=== PATIENT | male | born 1995 | race Caucasian/White ===

== ENCOUNTER 2021-08-14 16:42 | Outpatient (REF) | payer OTHER, SELFPAY ==
[2021-08-14 20:56] LABS: Influenza A PCR NEGATIVE (Negative); Influenza B PCR NEGATIVE (Negative); Resp Syncy Virus RNA Qual PCR POSITIVE (Negative); SARS COV2 PCR INHOUSE NEGATIVE (Negative)
== END 2021-08-14 16:43 | disposition home or self-care (01) ==
LOC: HO.LAB 16:42
PROVIDERS: Visit Provider Family Medicine
DX: Z20.822 Contact with and (suspected) exposure to COVID-19 (principal)
CPT/HCPCS: 0241U

== ENCOUNTER 2024-01-14 11:02 | Outpatient (AMB) | payer OTHER, SELFPAY ==
[2024-01-14 11:19] VITALS: BP 118/76; PULSE 83; O2SAT 96; BMI 36.7
--- NOTE | 2024-01-14 11:19 | A.OFFPC_ITS ---
Vital Signs 01/14/24 11:19 Height 6 ft 1 in Weight 278 lb BMI 36.7 BP 118/76 Blood Pressure Location Lt brachial Position Sitting Pulse 83 Pulse Source Pulse Oximeter Pulse Oximetry (%) 96 Oxygen Delivery Method Room Air Intake Visit Reasons: New Pt Est Care Intake Note: Patient is here as a new patient,,is concerned about cough, and scratch on his head that would not heal haircut was Thursday, and bled 3 times. Allergies No Known Allergies Allergy (Verified 01/14/24 11:23) Medication List - Last Reconciled 01/14/24 by Galileo Vásquez MD dextroamphetamine-amphetamine 20 mg 1 tab PO DAILY methylphenidate HCl ER 72 mg PO QAM trazodone 100 mg PO BEDTIME PRN Tobacco use date assessed: 01/14/24 Dental Screening Dental Screen Date: 01/14/24 Did you have a dental visit in the last 12 months?: Yes Did you have a dental problem in the last 6 months where you did not have access to dental care?: No Was dental information given to patient?: Patient has dentist HPI New Pt Est Care HPI Details New Patient? ?? Prior PCP:? [facility]. Last office visit/CPE:? > 1yr Acute issue(s):? Scalp injury Weight ?? PMHx:? Difficulty concentrating, Insomnia SurgHx:? none FHx:? Mom: Healthy. Dad: Idiopathic pulm fibrosis. SocHx:?No cigs, EtOH 2 beers on a weekend. Vapes Cannibis, No other drugs PFSH Medical History (Updated 01/14/24 @ 12:58 by Galileo Vásquez MD) Poison sue Heart murmur Trouble in sleeping ADHD Surgical History (Updated 01/14/24 @ 11:30 by Meredith Simmons CMA) No pertinent past surgical history Family History (Updated 01/14/24 @ 11:33 by Meredith Simmons CMA) Father Idiopathic pulmonary fibrosis Social History (Updated 01/14/24 @ 11:36 by Meredith Simmons CMA) Household Members: Family Both parents involved: No Caregiver staying overnight: No Housing: House Are you a primary care team assistant to a significant other at home: No Do you presently have visiting nurse or other home services: No 75 years or older and lives alone: No Alcohol intake: current Alcohol intake frequency: holidays/special occasions only Alcohol type: beer Patient Tobacco Use Status: Never used Tobacco e-Cigarette/Vaping Use: Never Used Special llyod needs: No service: No Current occupational status: unemployed Cognitive needs: No Hearing needs: No Vision needs: No Review of Systems Const Denies chills, Denies fatigue, Denies fever(s), Denies headache(s) and Denies weakness ENT Denies dizziness and Denies headache(s) Card Denies chest pain, Denies lightheadedness, Denies dyspnea and Denies other (Palpitations) Resp Denies cough, Denies dyspnea, Denies wheezing and Denies other ( shortness of breath) Musc Denies numbness and Denies tingling Neuro Denies dizziness, Denies headache(s), Denies numbness, Denies tingling, Denies paresthesias and Denies weakness Psych Denies anxiety and Denies depression Endo Denies fatigue Aller/Immun Denies wheezing Physical exam (Primary Care) Vital Signs: Last Vital Signs Pulse 83 01/14/24 11:19 BP 118/76 01/14/24 11:19 Pulse Ox 96 01/14/24 11:19 Oxygen Delivery Method Room Air 01/14/24 11:19 BMI result Body Mass Index 36.7 Tobacco/Smoking Status: Tobacco use Status Tobacco use date assessed 01/14/24 01/14/24 11:39 Patient Tobacco Use Status Never used Tobacco 01/14/24 11:39 e-Cigarette/Vaping Use Never Used 01/14/24 11:39 Const General: no acute distress and well developed Nutritional Appearance: well nourished Orientation/consciousness: patient oriented x3 HENMT Head: Yes normocephalic and Yes atraumatic Eyes General: appearance normal, both eyes and all related structures Pupils: Equal, round and reactive pupils present EOM: EOMs intact bilaterally Resp Effort & Inspection: normal respiratory effort Auscultation: clear to auscultation bilaterally Cardio Rate: regular rate Rhythm: regular rhythm Heart sounds: S1 normal heart sound present, S2 normal heart sound present, no gallops, no murmurs and no rubs Skin Other: Bright?red?0.5?cm?polypoid?lesion?on?scalp Neuro General: patient oriented x3 and gait normal Cranial nerves: Yes Equal, round and reactive pupils present Psych Affect: normal affect Assessment and Plan Assessment & Plan (1) Insomnia: Code(s): G47.00 - Insomnia, unspecified Plan: Can?continue?trazodone?however?will?rule?out?sleep?apnea?1st (2) Difficulty concentrating: Code(s): R41.840 - Attention and concentration deficit Plan: Difficulty?concentrating?and?patient?states?that?he?has?a?diagnosis?of?ADHD.??I? do?not?have?prior?practitioners?notes?and?will?await?these. If?I?can?establish?diagnosis?of?ADHD,?we?can?sign ?a?contract?and?resume?treatment.??Patient?agrees (3) Laboratory exam ordered as part of routine general medical examination: Code(s): Z00.00 - Encounter for general adult medical examination without abnormal findings Plan: Check?lab (4) Neoplasm of uncertain behavior of skin: Code(s): D48.5 - Neoplasm of uncertain behavior of skin Plan: Bright?red?0.5?cm?polypoid?lesion?on?scalp Likely?hamartoma - referred?to?dermatology (5) Obesity: Code(s): E66.9 - Obesity, unspecified Plan: We?discussed?diet?and?exercise Will?follow?weight Orders: Orders Comprehensive [place]. Panel Fast Today Z00.00 - Encounter for general adult medical examination without abnormal findings Prostate Specific Antigen Scr Today Z12.5 - Encounter for screening for malignant neoplasm of prostate Complete Blood Count Auto Diff Today G47.30 - Sleep apnea, unspecified, Z00.00 - Encounter for general adult medical examination without abnormal findings Lipid Panel Today Z00.00 - Encounter for general adult medical examination without abnormal findings Microalbumin, Random (w Creat) Today I10 - Essential (primary) hypertension TSH reflex Free T4 Today Z00.00 - Encounter for general adult medical examination without abnormal findings UA and rflx microscopic Today Z00.00 - Encounter for general adult medical examination without abnormal findings Referrals Dermatology Referral D48.5 - Neoplasm of uncertain behavior of skin Sleep Medicine Referral G47.30 - Sleep apnea, unspecified Coding Level of Care Code New Pt Level 3 (22444) Diagnoses Insomnia G47.00 Difficulty concentrating R41.840 Laboratory exam ordered as part of routine general medical examination Z00.00 Neoplasm of uncertain behavior of skin D48.5 Obesity E66.9
== END 2024-01-14 16:29 | disposition home or self-care (01) ==
PROVIDERS: Visit Provider Family Medicine
DX: G47.00 Insomnia, unspecified (principal); R41.840 Attention and concentration deficit; E66.9 Obesity, unspecified; Z68.36 Body mass index [BMI] 36.0-36.9, adult; D48.5 Neoplasm of uncertain behavior of skin
CPT/HCPCS: 99213

== ENCOUNTER 2024-01-21 13:52 | Outpatient (AMB) | payer OTHER, SELFPAY ==
--- NOTE | 2024-01-21 14:10 | A.OFFVIS_ITS ---
Vital Signs 01/21/24 14:12 Height 6 ft 1 in Weight 285 lb BMI 37.6 BP 118/72 Blood Pressure Location Rt brachial Position Sitting Respiration 16 Pulse 69 Pulse Source Pulse Oximeter Pulse Oximetry (%) 98 Oxygen Delivery Method Room Air Intake Visit Reasons: 30LVM+Let INp-ROGER Intake Note: Pt presents for new pt evaluation for sleep disturbance and snoring. Compensation Analyst Required: No Allergies No Known Allergies Allergy (Verified 01/21/24 14:10) Medication List - Last Reconciled 01/21/24 by Honey Whelan MD dextroamphetamine-amphetamine 20 mg (Adderall) 20 mg PO DAILY methylphenidate HCl ER (Concerta) 54 mg PO DAILY trazodone 100 mg (2 x 50 mg) PO BEDTIME PRN 30 days HPI Comments Details: 28y/o male comes for sleep evaluation . Main complaints-loud snoring Sleep questionnaire- Difficulty falling asleep-yes- is on trazadone Difficulty staying asleep-no Number of arousals-1 Snoring-yes Witnessed apneas-yes Gasping arousals-no Nocturia-no GERD-no Vivid dreams-no Acting out dreams -no Abnormal behavior in sleep-no ABnormal movements in sleep-no Morning headaches-no Excessive daytime sleepiness-no Daytime naps- yes restless legs- yes [facility] Medical History (Updated 01/21/24 @ 14:34 by Honey Whelan MD) Restless legs syndrome (RLS) Hypersomnia Loud snoring Poison sue Heart murmur Trouble in sleeping ADHD Surgical History No pertinent past surgical history Family History Father Idiopathic pulmonary fibrosis Social History Household Members: Family Both parents involved: No Caregiver staying overnight: No Housing: House Are you a primary ambulatory care to a significant other at home: No Do you presently have visiting nurse or other home services: No 75 years or older and lives alone: No Alcohol intake: current Alcohol intake frequency: holidays/special occasions only Alcohol type: beer Patient Tobacco Use Status: Never used Tobacco e-Cigarette/Vaping Use: Never Used Special lloyd needs: No service: No Current occupational status: unemployed Cognitive needs: No Hearing needs: No Vision needs: No Physical Exam Vital Signs: Last Vital Signs Pulse 69 01/21/24 14:12 Resp 16 01/21/24 14:12 BP 118/72 01/21/24 14:12 Pulse Ox 98 01/21/24 14:12 Oxygen Delivery Method Room Air 01/21/24 14:12 BMI result Body Mass Index 37.6 Const General: well developed; No acute distress Nutritional Appearance: well nourished Orientation/consciousness: patient oriented x3 HEENT Head: Yes normocephalic and Yes atraumatic Eyes General: appearance normal, both eyes and all related structures Pupils: Equal, round and reactive pupils present EOM: EOMs intact bilaterally Neuro General: patient oriented x3, gait normal, tone normal, moves all extremities and no focal motor deficits Cranial nerves: Yes Equal, round and reactive pupils present, Yes Bilaterally intact EOM present, Yes Nystagmus not present and Yes Normal facial strength present Cognition (Neuro): normal cognition Gait exam (Neuro): Normal gait present Motor exam (neuro): 5/5 motor strength present throughout and Normal motor muscle tone present throughout Deep tendon reflexes (DTR's): Right triceps reflex intensity grade: 1+, Left triceps reflex intensity grade: 1+, Rt Biceps (C5, C6): 1+, Left biceps reflex intensity grade: 1+, Right brachioradialis reflex intensity grade: 1+, Left brachioradialis reflex intensity grade: 1+, Right patellar reflex intensity grade: 1+ and Left patellar reflex intensity grade: 1+ Psych Affect: normal affect Assessment & Plan Assessment & Plan (1) Loud snoring: Code(s): R06.83 - Snoring Category: Medical (2) Hypersomnia: Code(s): G47.10 - Hypersomnia, unspecified Category: Medical (3) Restless legs syndrome (RLS): Code(s): G25.81 - Restless legs syndrome Category: Medical Plan Home sleep study to r/o sleep apnea. will check his Vit B 12 Ferritin Vit D CMP CBC Orders: Orders Vitamin D 25-OH (D2 and D3) Today G25.81 - Restless legs syndrome Ferritin Today G25.81 - Restless legs syndrome RT home sleep study Today G47.10 - Hypersomnia, unspecified, R06.83 - Snoring Vitamin B12 and Folate Today G25.81 - Restless legs syndrome Medications: New magnesium oxide 400 mg PO BEDTIME 30 tabs 6RF Coding Level of Care Code New Pt Level 4 (07866) Diagnoses Loud snoring R06.83 Hypersomnia G47.10 Restless legs syndrome (RLS) G25.81
[2024-01-21 14:12] VITALS: BP 118/72; PULSE 69; RESP 16; O2SAT 98; BMI 37.6
== END 2024-01-21 14:44 | disposition home or self-care (01) ==
PROVIDERS: Referring Provider Family Medicine; Visit Provider Psychiatry & Neurology Neurology
DX: R06.83 Snoring (principal); G47.10 Hypersomnia, unspecified; G25.81 Restless legs syndrome
CPT/HCPCS: 99204

== ENCOUNTER → 2024-01-21 13:52 | Outpatient (BNVA) | payer OTHER, SELFPAY | PROVIDERS: Visit Provider Psychiatry & Neurology Neurology | DX: R06.83 Snoring (principal); G47.10 Hypersomnia, unspecified; G25.81 Restless legs syndrome | CPT/HCPCS: 99202 ==

== ENCOUNTER 2024-01-27 12:15 | Emergency (ER) | payer OTHER, SELFPAY ==
[2024-01-27 12:43] VITALS: BP 139/64; PULSE 98; RESP 16; TEMP 36.8; O2SAT 97; BMI 36.7
--- NOTE | 2024-01-27 12:43 | ED_ITS ---
HPI - General Adult General Chief complaint: Wound/Laceration Stated complaint: Sent by Dr Bobby vergara on head Time Seen by Provider: 01/27/24 15:01 Source: patient, RN notes reviewed and old records reviewed Mode of arrival: ambulatory History of Present Illness ED Provider: Muna Sainz PA-C [facility] narrative: 28-year-old male with a past medical history of sleep apnea, presenting to the ED complaining of friable mass to scalp x few weeks. States noted area a few weeks ago & bleeds when irritated, admits it has been growing. Saw PCP referred him to Dermatology however can not get an appointment. denies fever, chills, trauma. Related Data Home Medications ?Medication ?Instructions ?Recorded ?Confirmed dextroamphetamine-amphetamine 20 20 mg PO DAILY 01/21/24 01/21/24 mg tablet (Adderall) methylphenidate HCl 54 mg 54 mg PO DAILY 01/21/24 01/21/24 tablet,extended release 24 hr (Concerta) Previous Rx's ?Medication ?Instructions ?Recorded trazodone 50 mg tablet 100 mg (2 x 50 mg) PO BEDTIME PRN 01/14/24 insomnia 30 days #30 tabs magnesium oxide 400 mg (241.3 mg 400 mg PO BEDTIME #30 tabs 01/21/24 magnesium) tablet Allergies Allergy/AdvReac Type Severity Reaction Status Date / Time No Known Allergies Allergy Verified 01/27/24 12:43 Review of Systems Review of Systems: Constitutional: No Fever, No Chills ENT/Mouth: No Ear Pain, No Nasal Congestion, No sore throat, No Rhinorrhea, No Swallowing Difficulty Cardiovascular: No Chest Pain, No SOB Respiratory: No Cough, No Sputum, No Wheezing Musculoskeletal: No joint pain, No Myalgias, No Joint Swelling Skin: + Skin Lesions, No rash Neuro: No Weakness, No Numbness, No Paresthesias Yes all other systems are reviewed and are negative Constitutional: Constitutional: Reports as per [facility] Past Medical History Attestation statement: The following information was validated with the patient. Source: old records reviewed Medical History Restless legs syndrome (RLS) Hypersomnia Loud snoring Poison sue Heart murmur Trouble in sleeping ADHD Surgical History No pertinent past surgical history Family History Family History Father Idiopathic pulmonary fibrosis Social History Social History Household Members: Family Housing: House Are you a primary residential care facility manager to a significant other at home: No Do you presently have visiting nurse or other home services: No Alcohol intake: current Alcohol intake frequency: holidays/special occasions only Alcohol type: beer Patient Tobacco Use Status: Never used Tobacco e-Cigarette/Vaping Use: Never Used Special lloyd needs: No Advance Directives: No Advance Directives Information Provided: No service: No Current occupational status: unemployed Cognitive needs: No Hearing needs: No Vision needs: No Physical Exam ED Vital Signs: Vital Signs - 24 hr 01/27/24 12:43 01/27/24 14:00 01/27/24 15:57 Temperature 98.2 F 98.4 F 98.4 F Pulse Rate 98 71 71 Respiratory Rate 16 16 Blood Pressure 139/64 133/72 133/72 Pulse Oximetry 97 96 96 Oxygen Delivery Method Room Air Room Air Room Air BMI result Body Mass Index 36.7 Const General: cooperative, healthy appearing and no acute distress Orientation/consciousness: patient oriented x3 Limitations: no limitations HENMT Other: Hemangioma noted to right scalp. No active bleeding. No fluctuance/induration or pointing. Surrounding cellulitis Head: Yes atraumatic Ears: hearing grossly normal bilaterally General nose exam: Normal external nose present Face and sinus: Yes normal facial exam Eyes General: appearance normal, both eyes and all related structures EOM: EOMs intact bilaterally Neck Neck: Yes normal visual inspection and Yes no meningeal signs Resp Effort & Inspection: normal respiratory effort and no respiratory distress Cardio Rate: regular rate Skin Rashes: no rashes Neuro General: patient oriented x3, tone normal and no meningeal signs Cranial nerves: Yes CN's II-XII intact bilaterally Gait exam (Neuro): Normal gait present Extrem General: Yes normal to inspection Course Course Course Narrative: This is a rapid medical exam performed by Lamine Pruitt NP: Additional HPI, ROS, PE not included below will be deferred to primary provider. Patient is a 28-year-old male referred to the ED by his PCP for a mass on his scalp for the past 2 weeks. States he was initially referred to dermatology but they don't take his insurance. Area has grown in size since. Reports significant bleeding if the area is disturbed. Approx 5mm erythematous nodule to scalp, no active bleeding. Medical Decision Making Medical Decision Making [facility] Narrative: 28-year-old male with a past medical history of sleep apnea, presenting to the ED complaining of friable mass to scalp x few weeks. On exam vital signs stable, NAD, nontoxic appearing, hemangioma noted to scalp without active bleeding or infection. Discussed with patient needs to follow-up with Dermatology for biopsy/excision if desired. Plan: Dermatology follow-up Please refer to course for remaining clinical decision making, interpretation of labs/imaging results, and discussions with consultants and/or family members. Results discussed with patient including worrisome signs and symptoms and strict return precautions, and when to return to the emergency department. They verbalized understanding and feel safe for discharge at this time. Differential Diagnosis Differential Diagnoses: The differential diagnosis associated with the presentation includes As above External Record Review External record reviewed: Inpatient record, Office record, Outpatient record, Prior outpatient labs, Prior outpatient radiology, Primary care record and Outside ED record Tests considered The following testing was considered but not selected: As above Prescription Management I considered prescription management with: Antibiotic Discharge Plan Discharge Clinical Impression: Lesion of skin of scalp Patient Disposition: Home, Self-Care Instructions: Skin Biopsy (DC) Additional Instructions: You need to follow-up with dermatology Call to make an appointment if area grows rapidly, begins bleeding that is not controllable or you have fever return to the ED Prescriptions: No Action trazodone 50 mg tablet 100 mg PO BEDTIME PRN (Reason: insomnia) 30 Days Qty: 30 2RF methylphenidate HCl [Concerta] 54 mg tablet extended release 24hr 54 mg PO DAILY Rx Instructions: 1.5 tabs every am dextroamphetamine-amphetamine [Adderall] 20 mg tablet 20 mg PO DAILY magnesium oxide 400 mg (241.3 mg magnesium) tablet 400 mg PO BEDTIME Qty: 30 6RF Referrals: [facility] [Outside] [facility] [Outside] [facility] [Outside] [facility] [Outside] Interventions: ED Discharge Assessment Last Done: 01/27/24 15:57 Discharge Date/Time: 01/27/24 15:58 Print Language: Czech
[2024-01-27 14:00] VITALS: BP 133/72; PULSE 71; TEMP 36.9; O2SAT 96
[2024-01-27 15:57] VITALS: BP 133/72; PULSE 71; RESP 16; TEMP 36.9; O2SAT 96
== END 2024-01-27 15:58 | disposition home or self-care (01) ==
PROVIDERS: Emergency Provider Emergency Medicine Emergency Medical Services; PCP Family Medicine
DX: L02.811 Cutaneous abscess of head [any part, except face] (principal); R22.0 Localized swelling, mass and lump, head
CPT/HCPCS: 99282; 99283

== ENCOUNTER 2024-02-10 10:20 | Outpatient (AMB) | payer OTHER, SELFPAY ==
--- NOTE | 2024-02-10 10:35 | AM.OFFWIN_ITS ---
Intake Vital Signs 02/10/24 10:36 Height 6 ft 0.83 in Weight 286 lb 4 oz BMI 37.9 BP 136/68 Blood Pressure Location Rt brachial Position Sitting Respiration 16 Pulse 74 Pulse Source Pulse Oximeter Temp 98.4 F Temp Source Oral Pulse Oximetry (%) 95 Oxygen Delivery Method Room Air Intake Visit Reasons: bump in head Intake Note: Bump on head that [facility] with Thalia last month. Seeing Dermatology in June so he declined appointment. Bump is bleeding more frequently few times a week. Patient Tobacco Use Status: Never used Tobacco Allergies No Known Allergies Allergy (Verified 02/10/24 10:35) Medication List - Last Reconciled 02/10/24 by CRUZ Diez-Armando dextroamphetamine-amphetamine 20 mg (Adderall) 20 mg PO DAILY magnesium oxide 400 mg PO BEDTIME methylphenidate HCl ER (Concerta) 54 mg PO DAILY trazodone 100 mg (2 x 50 mg) PO BEDTIME PRN 30 days HPI bump in head HPI Details Patient is a 28-year-old male who presents today with complaints of a lump on his scalp x 1-2 months. He states that he was seen a few weeks ago and was told that it looked consistent with a hamartoma. He states it just feels like it is rapidly growing and easily bleeding. He is frustrated because he cannot get in to see derm for a 6-12 months. He states that this lesion is making him uncomfortable and he does not there anymore. He states at this point he would private paid to get this taken off of him. [facility] Medical History Restless legs syndrome (RLS) Hypersomnia Loud snoring Poison sue Heart murmur Trouble in sleeping ADHD Surgical History No pertinent past surgical history Family History Father Idiopathic pulmonary fibrosis Social History Household Members: Family Both parents involved: No Caregiver staying overnight: No Housing: House Are you a primary lawn caretaker to a significant other at home: No Do you presently have visiting nurse or other home services: No 75 years or older and lives alone: No Alcohol intake: current Alcohol intake frequency: holidays/special occasions only Alcohol type: beer Patient Tobacco Use Status: Never used Tobacco e-Cigarette/Vaping Use: Never Used Special lloyd needs: No service: No Current occupational status: unemployed Cognitive needs: No Hearing needs: No Vision needs: No Physical Exam Vital Signs: Last Vital Signs Temp 98.4 F 02/10/24 10:36 Pulse 74 02/10/24 10:36 Resp 16 02/10/24 10:36 BP 136/68 02/10/24 10:36 Pulse Ox 95 02/10/24 10:36 Oxygen Delivery Method Room Air 02/10/24 10:36 BMI result Body Mass Index 37.9 Const Orientation/consciousness: patient oriented x3 HEENT Ears: hearing grossly normal bilaterally Resp Auscultation: clear to auscultation bilaterally Cardio Rate: regular rate Rhythm: regular rhythm Heart sounds: S1 normal heart sound present and S2 normal heart sound present Skin Other: Bright?red?1?cm?polypoid?lesion?on?scalp Neuro General: patient oriented x3 Assessment & Plan Assessment & Plan (1) Lesion of skin of scalp: Code(s): L98.9 - Disorder of the skin and subcutaneous tissue, unspecified Plan: We will refer to General surgery for consultation. Advised patient that he may not be able to private pay if he has mass Health at the dermatology office but he can try. He will contact [facility] and let us know if he gets an appointment and canceled consult to General surgery. Advised to follow up if anything worsens or changes. Patient understands and agrees with the plan. Orders: Referrals General Surgery Referral L98.9 - Disorder of the skin and subcutaneous tissue, unspecified Coding Level of Care Code Est Pt Level 3 (11402) Diagnoses Lesion of skin of scalp L98.9
[2024-02-10 10:36] VITALS: BP 136/68; PULSE 74; RESP 16; TEMP 36.9; O2SAT 95; BMI 37.9
== END 2024-02-10 10:41 | disposition home or self-care (01) ==
LOC: HO.HMGWIW 10:20
PROVIDERS: PCP Family Medicine
DX: L98.9 Disorder of the skin and subcutaneous tissue, unspecified (principal)
CPT/HCPCS: 99213

== ENCOUNTER 2024-02-23 13:40 | Outpatient (REF) | payer OTHER, SELFPAY | END 2024-02-23 13:41 | disposition home or self-care (01) | LOC: HO.LNP 13:40 | PROVIDERS: PCP Family Medicine; Visit Provider Surgery | DX: R22.0 Localized swelling, mass and lump, head (principal) | CPT/HCPCS: 11421; 88305; 99202 ==

== ENCOUNTER 2024-02-23 13:40 | Outpatient (AMB) | payer OTHER, SELFPAY ==
--- NOTE | 2024-02-23 13:42 | A.OFFVIS_ITS ---
Vital Signs 02/23/24 13:49 Height 6 ft 1 in Weight 282 lb BMI 37.2 BP 127/67 Blood Pressure Location Rt brachial Position Sitting Pulse 63 Intake Visit Reasons: Lesion of skin of scalp Intake Note: Patient referred after walk-in clinic visit for non healing lesion on scalp. Present for 6-7wks. Patient c/o: enlarging. Remembers hitting head with corner of cabinet. 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 He has had this several months time. It is increasing in size, become more symptomatic, occasionally bleeds. Like to have removed. He has no such lesions elsewhere. Chart was reviewed and patient evaluated. [facility] Medical History Restless legs syndrome (RLS) Hypersomnia Loud snoring Poison sue Heart murmur Trouble in sleeping ADHD Surgical History No pertinent past surgical history Family History Father Idiopathic pulmonary fibrosis Social History Household Members: Family Both parents involved: No Caregiver staying overnight: No Housing: House Are you a primary skin care consultant to a significant other at home: No Do you presently have visiting nurse or other home services: No 75 years or older and lives alone: No Alcohol intake: current Alcohol intake frequency: holidays/special occasions only Alcohol type: beer Patient Tobacco Use Status: Never used Tobacco e-Cigarette/Vaping Use: Never Used Special lloyd needs: No service: No Current occupational status: unemployed Cognitive needs: No Hearing needs: No Vision needs: No Physical Exam Vital Signs: Last Vital Signs Pulse 63 02/23/24 13:49 BP 127/67 02/23/24 13:49 BMI result Body Mass Index 37.2 HEENT Other: Patient has exophytic blood blister type growth the right parietal area measuring approximately 1 x 1 cm. Office Procedures Excision Details: Risks, benefits, alternatives of excision of right parietal scalp mass reviewed with the patient included but not limited to bleeding, infection, recurrence, numbness, pain, scarring the patient wished to proceed. All questions answered. After appropriate positioning, patient underwent 1% lidocaine and Betadine prep and uneventful tangential excision of this proximally 1 x 1 cm exophytic blood blister type mass. Specimen sent to pathology. Wound base was cauterized with silver nitrate followed by bacitracin. Patient tolerated procedure well. 10081-Rvotlhpg scalp/neck/hands/feet/genitalia 0.6cm-1cm Procedure code (CPT) selection complete Office Meds lidocaine 1 %-epinephrine 1:100,000 injection solution Performing Provider: Eugene Sheldon MD Performing Location: [facility] Administered by: Eugene Sheldon MD on 02/23/24 14:02 Dose Route Admin Location Dispensed Lot Number Expiration Date [facility] [employer] 10 mL Infiltration 10 mL Assessment & Plan Assessment & Plan (1) Scalp mass: Code(s): R22.0 - Localized swelling, mass and lump, head Category: Surgical Plan: Patient has been given local wound instructions including bacitracin the stay, the may shower starting tomorrow, and we will see me as directed or p.r.n.. Orders: Orders AMB Excision Today R22.0 - Localized swelling, mass and lump, head Medications: New lidocaine-epinephrine 1 %-1:100,000 10 mL Infiltration ONCE 30 mL 0RF R22.0 - Localized swelling, mass and lump, head Coding Level of Care Code New Pt Level 5 (03190) Diagnoses Scalp mass R22.0 CPT Codes Scalp/Neck/Hands/Feet/Genetalia - CPT: 29551-Oaygmyba scalp/neck/hands/feet/genitalia 0.6cm-1cm ([id number])
[2024-02-23 13:49] VITALS: BP 127/67; PULSE 63; BMI 37.2
== END 2024-02-23 14:04 | disposition home or self-care (01) ==
PROVIDERS: PCP Family Medicine; Visit Provider Surgery
DX: R22.0 Localized swelling, mass and lump, head (principal); L98.0 Pyogenic granuloma
CPT/HCPCS: 11421; 99204

== ENCOUNTER 2024-03-02 09:03 | Outpatient (AMB) | payer OTHER, SELFPAY ==
--- NOTE | 2024-03-02 09:06 | A.OFFVIS_ITS ---
Intake Visit Reasons: s/p Lesion of skin of scalp Intake Note: Patient here s/p exc on Rt parietal scalp. Reports site healing well. Patient c/o: still applying bacitracin. 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 He has no wound issues or complaints. Pathology is benign. [facility] Medical History Restless legs syndrome (RLS) Hypersomnia Loud snoring Poison sue Heart murmur Trouble in sleeping ADHD Surgical History No pertinent past surgical history Family History Father Idiopathic pulmonary fibrosis Social History Household Members: Family Both parents involved: No Caregiver staying overnight: No Housing: House Are you a primary outdoor emergency care technician to a significant other at home: No Do you presently have visiting nurse or other home services: No 75 years or older and lives alone: No Alcohol intake: current Alcohol intake frequency: holidays/special occasions only Alcohol type: beer Patient Tobacco Use Status: Never used Tobacco e-Cigarette/Vaping Use: Never Used Special lloyd needs: No service: No Current occupational status: unemployed Cognitive needs: No Hearing needs: No Vision needs: No Physical Exam HEENT Other: Wound well healed with eschar Assessment & Plan Assessment & Plan (1) Postop check: Code(s): Z09 - Encounter for follow-up examination after completed treatment for conditions other than malignant neoplasm Category: Surgical (2) Neoplasm of uncertain behavior of skin: Code(s): D48.5 - Neoplasm of uncertain behavior of skin Category: Medical (3) Scalp mass: Code(s): R22.0 - Localized swelling, mass and lump, head Category: Surgical Plan Patient has been given local instructions, and will follow-up p.r.n.. All questions answered. Coding Level of Care Code Global (05015) Diagnoses Postop check Z09 Neoplasm of uncertain behavior of skin D48.5 Scalp mass R22.0
== END 2024-03-02 09:07 | disposition home or self-care (01) ==
PROVIDERS: PCP Family Medicine; Visit Provider Surgery
DX: Z09 Encounter for follow-up examination after completed treatment for conditions other than malignant neoplasm (principal); D48.5 Neoplasm of uncertain behavior of skin; R22.0 Localized swelling, mass and lump, head
CPT/HCPCS: 99024

== ENCOUNTER → 2024-03-02 09:12 | Outpatient (REF) | payer OTHER, SELFPAY | LOC: HO.SL 09:12 | PROVIDERS: Visit Provider Psychiatry & Neurology Neurology | DX: G47.10 Hypersomnia, unspecified (principal); R06.83 Snoring; R22.0 Localized swelling, mass and lump, head; D48.5 Neoplasm of uncertain behavior of skin | CPT/HCPCS: 95806; 99212 ==

== ENCOUNTER → 2024-03-08 09:23 | Outpatient (BNV) | payer OTHER, SELFPAY | PROVIDERS: Visit Provider Psychiatry & Neurology Neurology | DX: R06.83 Snoring (principal) | CPT/HCPCS: 95806 ==

== ENCOUNTER 2024-03-17 11:09 | Outpatient (AMB) | payer OTHER, SELFPAY ==
--- NOTE | 2024-03-17 11:14 | A.OFFPC_ITS ---
Vital Signs 03/17/24 11:21 Height 6 ft 1 in Weight 280 lb BMI 36.9 BP 106/66 Blood Pressure Location Lt brachial Position Sitting Respiration 16 Pulse 79 Pulse Source Pulse Oximeter Temp 98.7 F Temp Source Oral Pulse Oximetry (%) 96 Oxygen Delivery Method Room Air Intake Visit Reasons: CPE with f/u labs and health maint. 30 mins Intake Note: CPE Allergies No Known Allergies Allergy (Verified 03/17/24 11:20) Medication List - Last Reconciled 03/17/24 by Elyse Wright PA-C dextroamphetamine-amphetamine 20 mg (Adderall) 20 mg PO DAILY magnesium oxide 400 mg PO BEDTIME methylphenidate HCl ER (Concerta) 54 mg PO DAILY trazodone 100 mg (2 x 50 mg) PO BEDTIME PRN 30 days Tobacco use date assessed: 03/17/24 Dental Screening Dental Screen Date: 03/17/24 Did you have a dental visit in the last 12 months?: No Did you have a dental problem in the last 6 months where you did not have access to dental care?: Yes Was dental information given to patient?: Yes HPI CPE with f/u labs and health maint. 30 mins HPI Details Pt is a 28 y.o male who presents today for cpe. Psych: he is on concerta 54 er and adderall 20 mg prn. He states that is helpful. He is on trazodone 100 mg at night for insomnia. He denies any acute concerns today. [facility] Medical History Restless legs syndrome (RLS) Hypersomnia Loud snoring Poison sue Heart murmur Trouble in sleeping ADHD Surgical History No pertinent past surgical history Family History Father Idiopathic pulmonary fibrosis Social History (Updated 03/17/24 @ 11:20 by Tamica Song) Household Members: Family Housing: House Are you a primary health care law specialist to a significant other at home: No Do you presently have visiting nurse or other home services: No Alcohol intake: current Alcohol intake frequency: holidays/special occasions only Alcohol type: beer Patient Tobacco Use Status: Never used Tobacco e-Cigarette/Vaping Use: Never Used Special lloyd needs: No service: No Current occupational status: unemployed Current occupational exposures/hazards: No Cognitive needs: No Hearing needs: No Vision needs: No Questionnaire PHQ-9 Over the last 2 weeks, how often have you been bothered by any of the following problems? 1. Little interest or pleasure in doing things: not at all 2. Feeling down, depressed, or hopeless: not at all 3. Trouble falling or staying asleep, or sleeping too much: several days 4. Feeling tired or having little energy: several days 5. Poor appetite or overeating: several days 6. Feeling bad about yourself - or that you are a failure or have let yourself or your family down: not at all 7. Trouble concentrating on things, such as reading the newspaper or watching television: more than half the days 8. Moving or speaking so slowly that other people could have noticed. Or the opposite - being so fidgety or restless that you have been moving around a lot more than usual: not at all 9. Thoughts that you would be better off or of hurting yourself in some way: not at all Total score: 5 Depression Screening Interpretation: Positive Depression Screening Done: Yes 06937 - PHQ-9 Billing: Yes Source: Developed by Drs. Saleem Griffin, Saira Corona, Morgan Powell and colleagues, with an educational yevgeniy from [employer]. Thrive Questionnaire Date Thrive assessed: 03/17/24 I am a: Patient What is your living situation today?: I have a steady place to live Within the past 12 months, did the food you bought not last and you didn't have the money to get more?: Often true Within the past 12 months, did you worry whether your food would run out before you got money to buy more?: Often true Do you have trouble paying for medicines?: No Do you have trouble getting transportation to medical appointments?: No Do you have trouble paying your heating and electricity bill?: No Do you have trouble taking care of your child, family member or friend?: No Do you have trouble with day-to-day activities such as bathing, preparing meals, shopping, managing finances, etc.?: No Are you currently unemployed and looking for a job?: Yes Are you interested in more education?: Yes Please select the resources that you would like help with: None Currently or been in a relationship where the following occur: No concerns reported THRIVE Score: 2 AUDIT C Alcohol Use Questionnaire (AUDIT-C) 1. How often do you have a drink containing alcohol?: Monthly or less 2. How many drinks containing alcohol do you have on a typical day when you are drinking?: 3 or 4 3. How often do you have six or more drinks on one occasion?: Less than monthly Total Score: 3 Score Reviewed/Action Taken: No ENRIQUETA-7 AMB Questionnaire ENRIQUETA-7 Date ENRIQUETA - 7 assessed: 03/17/24 Feeling nervous, anxious, or on edge: 1 = Several days Not being able to stop or control worryin = Not at all Worrying too much about different things: 0 = Not at all Trouble relaxin = Several days Being so restless that it is hard to sit still: 1 = Several days Becoming easily annoyed or irritable: 0 = Not at all Feeling afraid as if something awful might happen: 0 = Not at all Total ENRIQUETA-7 score (0-4 normal; 5-9 mild; 10-14 moderate; 15-21 severe): 3 Source: Developed by Drs. Saleem Griffin, Saira Corona, Morgan Powell and colleagues, with an educational yevgeniy from [employer]. ENRIQUETA-7 Assessment Billing ENRIQUETA-7 Assessment Tool: ENRIQUETA-7 Assessment 48431 Physical exam (Primary Care) Vital Signs: Last Vital Signs Temp 98.7 F 03/17/24 11:21 Pulse 79 03/17/24 11:21 Resp 16 03/17/24 11:21 BP 106/66 03/17/24 11:21 Pulse Ox 96 03/17/24 11:21 Oxygen Delivery Method Room Air 03/17/24 11:21 BMI result Body Mass Index 36.9 Tobacco/Smoking Status: Tobacco use Status Tobacco use date assessed 03/17/24 03/17/24 11:26 Patient Tobacco Use Status Never used Tobacco 03/17/24 11:20 e-Cigarette/Vaping Use Never Used 03/17/24 11:20 PHQ-9: PHQ-9 Score PHQ-9: Total score 5 03/17/24 11:26 Depression Screening Interpretation: Positive Thrive Assessment: Date of Thrive Assessment Date Thrive assessed 03/17/24 03/17/24 11:26 Currently or been in a relationship where the following occur: No concerns reported Const Orientation/consciousness: patient oriented x3 HENMT Ears: hearing grossly normal bilaterally and TM's normal bilaterally General nose exam: No nasal polyps present Face and sinus: Yes sinuses nontender Mouth: Normal oral and palatal mucosa present Eyes Pupils: Equal, round and reactive pupils present EOM: EOMs intact bilaterally Neck Neck: Yes full ROM and Yes no lymphadenopathy Thyroid: Thyroid normal Chest Chest palpation & inspection: normal inspection of the chest Resp Auscultation: clear to auscultation bilaterally Cardio Rate: regular rate Rhythm: regular rhythm Heart sounds: S1 normal heart sound present and S2 normal heart sound present Peripheral pulses: Peripheral pulses 2+ throughout GI Other: Soft, nontender Auscultation: normal bowel sounds Rectal Exam - Male: Yes deferred General: Yes no CVA tenderness Back/Spine/Pelvis Other: Nontender Back: no CVA tenderness Skin General skin exam: no rashes or lesions noted Neuro General: patient oriented x3, gait normal, CN's II-XI intact bilaterally and deep tendon reflexes 2+ bilaterally Cranial nerves: Yes Equal, round and reactive pupils present Motor exam (neuro): 5/5 motor strength present throughout Sensory Exam: double simultaneous stimulation for sensation normal Coordination: vpmxrf-gl-eydi test normal and Romberg test negative Extrem General: Yes normal to inspection and Yes full ROM Psych Affect: normal affect Attitude: cooperative Thought process: Normal thought process present Thought content: Normal thought content present Insight: Good insight present (Psych) Judgement: Good judgement present (Psych) Assessment and Plan Assessment & Plan (1) Routine general medical examination at a health care facility: Code(s): Z00.00 - Encounter for general adult medical examination without abnormal findings Plan: Health maintenance reviewed. Labs ordered today. (2) Insomnia: Code(s): G47.00 - Insomnia, unspecified Plan: Has met with sleep Medicine in his going to try magnesium. He will continue on trazodone. (3) Difficulty concentrating: Code(s): R41.840 - Attention and concentration deficit Plan: Continue current regimen. Follow up with PCP for CSC. Orders: Orders TSH reflex Free T4 Today Z00.00 - Encounter for general adult medical examination without abnormal findings Hepatitis C Antibody Today Z11.3 - Encounter for screening for infections with a predominantly sexual mode of transmission CT NG by PCR Today Z11.3 - Encounter for screening for infections with a predominantly sexual mode of transmission Complete Blood Count Auto Diff Today Z00.00 - Encounter for general adult medical examination without abnormal findings Comprehensive [place]. Panel Fast Today Z00.00 - Encounter for general adult medical examination without abnormal findings Lipid Panel Today Z00.00 - Encounter for general adult medical examination without abnormal findings HIV Ab/Ag Today Z11.3 - Encounter for screening for infections with a predominantly sexual mode of transmission Syphilis Screen Today Z11.3 - Encounter for screening for infections with a predominantly sexual mode of transmission Medications: Changed From dextroamphetamine-amphetamine 20 mg (Adderall) 20 mg PO DAILY 0RF To dextroamphetamine-amphetamine 20 mg (Adderall) 20 mg PO DAILY 30 days 30 tabs 0RF From methylphenidate HCl ER (Concerta) 1.5 tabs every am 54 mg PO DAILY 0RF To methylphenidate HCl ER (Concerta) 54 mg PO DAILY 30 days 30 tabs 0RF Coding Level of Care Code Est Pt Prev Care 18-39y(49992) Diagnoses Routine general medical examination at a health care facility Z00.00 Insomnia G47.00 Difficulty concentrating R41.840 Additional Codes ENRIQUETA-7 Assessment Billing - ENRIQUETA-7 Assessment Tool: ENRIQUETA-7 Assessment 78633 ([id number])
[2024-03-17 11:21] VITALS: BP 106/66; PULSE 79; RESP 16; TEMP 37.1; O2SAT 96; BMI 36.9
== END 2024-03-17 11:52 | disposition home or self-care (01) ==
PROVIDERS: PCP Family Medicine; Visit Provider Physician Assistant
DX: Z00.00 Encounter for general adult medical examination without abnormal findings (principal); G47.00 Insomnia, unspecified; R41.840 Attention and concentration deficit
CPT/HCPCS: 99395

== ENCOUNTER 2024-03-17 12:01 | Outpatient (REF) | payer OTHER, SELFPAY ==
[2024-03-17 14:44] LABS: MANUAL DIFF FLAG NO
[2024-03-17 14:57] LABS: Appearance Urine Clear; Color Urine Yellow; Glucose Urine UA Negative (Negative); Leukocyte Esterase Urine Negative (Negative); Nitrite Urine Negative (Negative); Urine Blood Negative (Negative); Urine Ketones Negative (Negative); Urine Protein Negative (Neg-Trace)
[2024-03-17 15:11] LABS: Basophils Absolute Auto 0.1 X10*3/uL (0.0-0.2); Basophils Percent Auto 0.8 % (0-2); Eosinophils Absolute Auto 0.2 X10*3/uL (0.0-0.4); Hemoglobin 15.6 g/dl (14.0-18.0); Imm Gran Abs Auto 0.02 X10*3/uL (0.00-0.03); Imm Gran Pct Auto 0.3 % (0.0-0.4); Lymphocytes Absolute Auto 1.5 X10*3/uL (1.2-4.9); Lymphocytes Percent Auto 21.9 % (20-40); Mean Corpuscular HGB Conc 33.9 g/dl (31.0-36.0); Mean Corpuscular Hemoglobin 28.8 pg (27.0-33.0); Mean Corpuscular Volume 84.9 fL (80.0-98.0); Mean Platelet Volume 10.5 fL (9.4-12.4); Monocytes Absolute Auto 0.6 X10*3/uL (0.1-1.2); Monocytes Percent Auto 8.7 % (2-11); Neutrophils Absolute Auto 4.4 x10*3/uL (2.0-8.3); Neutrophils Percent Auto 65.3 % (45-73); Platelet Count 305 X10*3/uL (160-400); Red Blood Count 5.42 X10*6/uL (4.60-5.80); Red Cell Distribution Width 12.7 % (11.0-16.0); White Blood Count 6.7 X10*3/uL (4.8-10.8)
[2024-03-17 15:54] LABS: Alanine Aminotransferase 30 U/L (0-40); Albumin Level 4.5 g/dL (3.5-5.0); Alkaline Phosphatase 73 U/L (39-117); Anion Gap 12 (12-20); Aspartate Amino Transferase 21 U/L (5-37); Bilirubin Total 1.3 mg/dL (0.0-1.0); Blood Urea Nitrogen 17 mg/dL (9-16); Carbon Dioxide 27 mmol/L (22-29); Chloride 105 mmol/L (96-108); Cholesterol 197 mg/dL (<200); Estimated Glomerular Filt Rate > 60; Glucose Fasting 102 mg/dL (60-99); HDL Cholesterol 53 mg/dL (>40); LDL Cholesterol Calculated 127 mg/dL (<100); Potassium 4.6 mmol/L (3.3-5.1); Sodium 139 mmol/L (135-145); TSH reflex Free T4 1.01 uIU/mL (0.32-4.0); Total Protein 7.4 g/dL (6.5-8.0); Triglycerides 85 mg/dL (<150)
[2024-03-17 15:57] LABS: Creatinine Urine 133.38 mg/dL; Microalbumin Urine < 5.0 mg/L
[2024-03-17 15:57] LABS: Ferritin 159 ng/mL (20-250)
[2024-03-17 16:09] LABS: Folate 12.5 ng/mL (> or = 4.0); Prostate Specific Antigen Scr 0.55 ng/mL (<0.05-4.0); Vitamin B12 563 pg/mL (200-900)
[2024-03-18 04:24] LABS: HIV AB/AG Nonreactive (Nonreactive); HIV Num 1 0.07 S/CO (0.00-0.99); ~HepC Num1 0.13 S/CO (0.00-0.79); ~Hepatitis C Antibody Nonreactive (Nonreactive)
[2024-03-23 14:58] LABS: Vitamin D 25-OH, D2 <4 ng/mL; Vitamin D 25-OH, D3 34 ng/mL; Vitamin D 25-OH, Total 34 ng/mL (30-100)
== END 2024-03-17 12:02 | disposition home or self-care (01) ==
LOC: HO.WFDLDS 12:01
PROVIDERS: Physician Assistant; Psychiatry & Neurology Neurology; Visit Provider Family Medicine
DX: Z00.00 Encounter for general adult medical examination without abnormal findings (principal); I10 Essential (primary) hypertension; Z12.5 Encounter for screening for malignant neoplasm of prostate; G47.30 Sleep apnea, unspecified; G25.81 Restless legs syndrome; Z11.3 Encounter for screening for infections with a predominantly sexual mode of transmission
CPT/HCPCS: 36415; 80053; 80061; 81003; 82043; 82306; 82570; 82607; 82728; 82746; 84153; 84443; 85025; 86803; 87389

== ENCOUNTER 2024-07-12 09:36 | Outpatient (AMB) | payer OTHER, SELFPAY ==
--- NOTE | 2024-07-12 09:38 | A.OFFPC_ITS ---
Vital Signs 07/12/24 09:41 Height 6 ft 1 in Weight 272 lb 4 oz BMI 35.9 BP 134/72 Blood Pressure Location Lt brachial Position Sitting Respiration 14 Pulse 61 Pulse Source Pulse Oximeter Temp 96.8 F Temp Source Skin Pulse Oximetry (%) 61 L Oxygen Delivery Method Room Air Intake Visit Reasons: f/u with pcp for csc Intake Note: follow up for meds Procurement Internship Required: No Allergies No Known Allergies Allergy (Verified 07/12/24 09:41) Tobacco use date assessed: 03/17/24 Dental Screening Dental Screen Date: 07/12/24 Did you have a dental visit in the last 12 months?: Yes Did you have a dental problem in the last 6 months where you did not have access to dental care?: No Was dental information given to patient?: Patient has dentist HPI f/u with pcp for csc HPI Details 29 y/o male presents to f/u ADHD. He is on Adderall 20mg, concerta. Denies any issues with sleep. Notes slightly decreased appetite loss. Denies increased anxiety. [facility] Medical History Restless legs syndrome (RLS) Hypersomnia Loud snoring Poison sue Heart murmur Trouble in sleeping ADHD Surgical History No pertinent past surgical history Family History Father Idiopathic pulmonary fibrosis Social History (Updated 03/17/24 @ 11:20 by Tamica Song [facility] Household Members: Family Both parents involved: No Caregiver staying overnight: No Housing: House Are you a primary rn care transition to a significant other at home: No Do you presently have visiting nurse or other home services: No 75 years or older and lives alone: No Alcohol intake: current Alcohol intake frequency: holidays/special occasions only Alcohol type: beer Patient Tobacco Use Status: Never used Tobacco e-Cigarette/Vaping Use: Never Used Special lloyd needs: No service: No Current occupational status: unemployed Current occupational exposures/hazards: No Cognitive needs: No Hearing needs: No Vision needs: No Questionnaire PHQ-9 Over the last 2 weeks, how often have you been bothered by any of the following problems? 1. Little interest or pleasure in doing things: not at all 2. Feeling down, depressed, or hopeless: not at all 3. Trouble falling or staying asleep, or sleeping too much: not at all 4. Feeling tired or having little energy: not at all 5. Poor appetite or overeating: not at all 6. Feeling bad about yourself - or that you are a failure or have let yourself or your family down: not at all 7. Trouble concentrating on things, such as reading the newspaper or watching television: not at all 8. Moving or speaking so slowly that other people could have noticed. Or the opposite - being so fidgety or restless that you have been moving around a lot more than usual: not at all 9. Thoughts that you would be better off or of hurting yourself in some way: not at all Total score: 0 83390 - PHQ-9 Billing: Yes Source: Developed by Drs. Saleem Griffin, Saira Corona, Morgan Powell and colleagues, with an educational yevgneiy from [email or web address]. Thrive Questionnaire Date Thrive assessed: 07/12/24 I am a: Patient What is your living situation today?: I have a steady place to live Within the past 12 months, did the food you bought not last and you didn't have the money to get more?: Never true Within the past 12 months, did you worry whether your food would run out before you got money to buy more?: Sometimes True Do you have trouble paying for medicines?: Yes Do you have trouble getting transportation to medical appointments?: No Do you have trouble paying your heating and electricity bill?: Yes Do you have trouble taking care of your child, family member or friend?: No Do you have trouble with day-to-day activities such as bathing, preparing meals, shopping, managing finances, etc.?: No Are you currently unemployed and looking for a job?: I choose not to answer this question Are you interested in more education?: Yes Please select the resources that you would like help with: None Currently or been in a relationship where the following occur: No concerns reported THRIVE Score: 2 AUDIT C Alcohol Use Questionnaire (AUDIT-C) 1. How often do you have a drink containing alcohol?: 2-4 times a month 2. How many drinks containing alcohol do you have on a typical day when you are drinking?: 1 or 2 3. How often do you have six or more drinks on one occasion?: Less than monthly Total Score: 3 ENRIQUETA-7 AMB Questionnaire ENRIQUETA-7 Date ENRIQUETA - 7 assessed: 07/12/24 Feeling nervous, anxious, or on edge: 1 = Several days Not being able to stop or control worryin = Not at all Worrying too much about different things: 0 = Not at all Trouble relaxin = Several days Being so restless that it is hard to sit still: 0 = Not at all Becoming easily annoyed or irritable: 0 = Not at all Feeling afraid as if something awful might happen: 0 = Not at all Total ENRIQUETA-7 score (0-4 normal; 5-9 mild; 10-14 moderate; 15-21 severe): 2 Source: Developed by Drs. Saleem Griffin, Saira Corona, Morgan Powell and colleagues, with an educational yevgeniy from [email or web address]. ENRIQUETA-7 Assessment Billing ENRIQUETA-7 Assessment Tool: ENRIQUETA-7 Assessment 96713 Physical exam (Primary Care) Vital Signs: Last Vital Signs Temp 96.8 F 07/12/24 09:41 Pulse 61 07/12/24 09:41 Resp 14 07/12/24 09:41 BP 134/72 07/12/24 09:41 Pulse Ox 61 L 07/12/24 09:41 Oxygen Delivery Method Room Air 07/12/24 09:41 BMI result Body Mass Index 35.9 Tobacco/Smoking Status: Tobacco use Status Tobacco use date assessed 03/17/24 07/12/24 09:40 Patient Tobacco Use Status Never used Tobacco 07/12/24 09:40 e-Cigarette/Vaping Use Never Used 07/12/24 09:40 PHQ-9: PHQ-9 Score PHQ-9: Total score 0 07/12/24 09:40 Thrive Assessment: Date of Thrive Assessment Date Thrive assessed 07/12/24 07/12/24 09:40 Currently or been in a relationship where the following occur: No concerns reported Coding Level of Care Code Est Pt Level 3 (49709) Diagnoses ADHD F90.9 Additional Codes ENRIQUETA-7 Assessment Billing - ENRIQUETA-7 Assessment Tool: ENRIQUETA-7 Assessment 40608 ([id number]) PHQ-9 - 27274 - PHQ-9 Billing: Yes ([id number]) Assessment & Plan Assessment & Plan (1) ADHD: Code(s): F90.9 - Attention-deficit hyperactivity disorder, unspecified type Category: Medical Plan: Had?confirmed?with?patient's?prior?records?that?he?is?on?Adderall?and?Concerta. We?continued?these?medications?but?started?Concerta?a?lower?dose.??He?notes?that ?this?is?actually?a?good?dose?for?him. Concentrating?well.??N o?significant?adverse?effects?to?his?appetite,?sleep?or?any?increased?anxiety Continue?current?medication?regimen Hydrate?well?and?be?sure?to?get?healthy?nutrition. Will?continue?to?follow
[2024-07-12 09:41] VITALS: BP 134/72; PULSE 61; RESP 14; TEMP 36; O2SAT 61; BMI 35.9
== END 2024-07-12 10:25 | disposition home or self-care (01) ==
PROVIDERS: PCP Family Medicine; Visit Provider Family Medicine
DX: F90.9 Attention-deficit hyperactivity disorder, unspecified type (principal)

== ENCOUNTER → 2024-07-12 09:36 | Outpatient (BNVA) | payer OTHER, SELFPAY | PROVIDERS: PCP Family Medicine; Visit Provider Family Medicine | DX: F90.9 Attention-deficit hyperactivity disorder, unspecified type (principal) | CPT/HCPCS: 96127; 99212 ==

== ENCOUNTER 2024-08-02 14:00 | Outpatient (AMB) | payer OTHER, SELFPAY ==
--- NOTE | 2024-08-02 14:11 | MHC.OFFVIS ---
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 Home sleep test was inconclusive . He reports loud snoring and hypersomnia. Restless legs is better. He stopped trazadone and is on magnesium. [facility] Medical History Restless legs syndrome (RLS) Hypersomnia Loud snoring Poison sue Heart murmur Trouble in sleeping ADHD Surgical History No pertinent past surgical history Family History Father Idiopathic pulmonary fibrosis Social History Household Members: Family Both parents involved: No Caregiver staying overnight: No Housing: House Are you a primary primary care provider to a significant other at home: No Do you presently have visiting nurse or other home services: No 75 years or older and lives alone: No Alcohol intake: current Alcohol intake frequency: holidays/special occasions only Alcohol type: beer Patient Tobacco Use Status: Never used Tobacco e-Cigarette/Vaping Use: Never Used Special lloyd needs: No service: No Current occupational status: unemployed Current occupational exposures/hazards: No Cognitive needs: No Hearing needs: No Vision needs: No Physical Exam Vital Signs: Last Vital Signs Pulse 94 08/02/24 14:12 BP 118/80 08/02/24 14:12 Pulse Ox 96 08/02/24 14:12 Oxygen Delivery Method Room Air 08/02/24 14:12 BMI result Body Mass Index 36.5 Const General: well developed; No acute distress Nutritional Appearance: well nourished Orientation/consciousness: patient oriented x3 HEENT Head: Yes normocephalic and Yes atraumatic Eyes General: appearance normal, both eyes and all related structures Pupils: Equal, round and reactive pupils present EOM: EOMs intact bilaterally Neuro General: patient oriented x3, gait normal, tone normal, moves all extremities and no focal motor deficits Cranial nerves: Yes Equal, round and reactive pupils present, Yes Bilaterally intact EOM present, Yes Nystagmus not present and Yes Normal facial strength present Cognition (Neuro): normal cognition Psych Affect: normal affect Assessment & Plan Assessment & Plan (1) Loud snoring: Code(s): R06.83 - Snoring Category: Medical (2) Hypersomnia: Code(s): G47.10 - Hypersomnia, unspecified Category: Medical (3) Restless legs syndrome (RLS): Code(s): G25.81 - Restless legs syndrome Category: Medical Plan I will schedule him for an in lab sleep study for a more detailed evaluation Gabapentin 100mg 1-3 tabs bedtime Magnesium 200-400 mg qhs Orders: Orders RT PSG in-lab sleep study Today G47.10 - Hypersomnia, unspecified, R06.83 - Snoring Medications: New gabapentin 1-3 caps orally bedtime; 90 caps 2RF Coding Level of Care Code Est Pt Level 4 (85327) Diagnoses Loud snoring R06.83 Hypersomnia G47.10 Restless legs syndrome (RLS) G25.81
[2024-08-02 14:12] VITALS: BP 118/80; PULSE 94; O2SAT 96; BMI 36.5
== END 2024-08-02 15:05 | disposition home or self-care (01) ==
PROVIDERS: Visit Provider Psychiatry & Neurology Neurology
DX: R06.83 Snoring (principal); G47.10 Hypersomnia, unspecified; G25.81 Restless legs syndrome
CPT/HCPCS: 99214

== ENCOUNTER → 2024-08-02 14:00 | Outpatient (BNVA) | payer OTHER, SELFPAY | PROVIDERS: Visit Provider Psychiatry & Neurology Neurology | DX: G25.81 Restless legs syndrome (principal); R06.83 Snoring; G47.10 Hypersomnia, unspecified | CPT/HCPCS: 99212 ==

== ENCOUNTER → 2024-09-06 20:30 | Outpatient (REF) | payer OTHER, SELFPAY | LOC: HO.SL 20:30 | PROVIDERS: Visit Provider Psychiatry & Neurology Neurology | DX: G47.10 Hypersomnia, unspecified (principal); R06.83 Snoring | CPT/HCPCS: 95810 ==

== ENCOUNTER → 2024-09-06 21:04 | Outpatient (BNV) | payer OTHER, SELFPAY | PROVIDERS: Visit Provider Psychiatry & Neurology Neurology | DX: R06.83 Snoring (principal); G47.10 Hypersomnia, unspecified | CPT/HCPCS: 95810 ==

== ENCOUNTER 2024-11-09 15:42 | Outpatient (AMB) | payer OTHER, SELFPAY ==
--- NOTE | 2024-11-09 15:58 | A.OFFPC_ITS ---
Vital Signs 11/09/24 16:02 Height 6 ft 1 in Weight 264 lb 4 oz BMI 34.9 BP 106/60 Blood Pressure Location Rt brachial Position Sitting Respiration 12 Pulse 77 Pulse Source Pulse Oximeter Temp 99.6 F Temp Source Oral Pulse Oximetry (%) 96 Oxygen Delivery Method Room Air Intake Visit Reasons: f/u ADHD Intake Note: patient is scheduled for adhd follow up with pcp referral to an dietetic technician registered Home Based Assistant Required: No Allergies No Known Allergies Allergy (Verified 11/09/24 16:06) Medication List - Last Reconciled 11/09/24 by Galileo Vásquez MD dextroamphetamine-amphetamine 20 mg (Adderall) 20 mg PO DAILY 30 days gabapentin 1-3 caps orally bedtime; magnesium oxide 400 mg PO BEDTIME methylphenidate HCl ER 36 mg PO DAILY 30 days Tobacco use date assessed: 03/17/24 Dental Screening Dental Screen Date: 07/12/24 HPI f/u ADHD HPI Details 29 y/o male presents to f/u ADHD. He is on Adderall 20mg, methylphenidae 36mg daily. Denies any worsening issues with anxiety, sleep disturbances, appetite. Does note mild anxiety. He has a therapist. He notes he had done a sleep study - tested negative for sleep apnea. They had recommended an social security specialist for his snoring. Labs drawn 03/17/24. Reviewed labs with pt. Elevated fasting glucose of 102. Triglycerides 85. TC 197. LDL 127. HDL 53. PFSH Medical History Restless legs syndrome (RLS) Hypersomnia Loud snoring Poison sue Heart murmur Trouble in sleeping ADHD Surgical History No pertinent past surgical history Family History Father Idiopathic pulmonary fibrosis Social History Household Members: Family Both parents involved: No Caregiver staying overnight: No Housing: House Are you a primary nurse wound care to a significant other at home: No Do you presently have visiting nurse or other home services: No 75 years or older and lives alone: No Alcohol intake: current Alcohol intake frequency: holidays/special occasions only Alcohol type: beer Patient Tobacco Use Status: Never used Tobacco e-Cigarette/Vaping Use: Never Used Special lloyd needs: No service: No Current occupational status: unemployed Current occupational exposures/hazards: No Cognitive needs: No Hearing needs: No Vision needs: No Questionnaire PHQ-9 Over the last 2 weeks, how often have you been bothered by any of the following problems? 1. Little interest or pleasure in doing things: not at all 2. Feeling down, depressed, or hopeless: not at all 3. Trouble falling or staying asleep, or sleeping too much: not at all 4. Feeling tired or having little energy: not at all 5. Poor appetite or overeating: not at all 6. Feeling bad about yourself - or that you are a failure or have let yourself or your family down: not at all 7. Trouble concentrating on things, such as reading the newspaper or watching television: not at all 8. Moving or speaking so slowly that other people could have noticed. Or the opposite - being so fidgety or restless that you have been moving around a lot more than usual: not at all 9. Thoughts that you would be better off or of hurting yourself in some way: not at all Total score: 0 Depression Screening Interpretation: Negative Depression Screening Done: Yes 16327 - PHQ-9 Billing: Yes Source: Developed by Drs. Saleem Griffin, Saira Corona, Morgan Powell and colleagues, with an educational yevgeniy from [employer]. Thrive Questionnaire Date Thrive assessed: 11/09/24 I am a: Patient What is your living situation today?: I have a steady place to live Within the past 12 months, did the food you bought not last and you didn't have the money to get more?: Never true Within the past 12 months, did you worry whether your food would run out before you got money to buy more?: Never true Do you have trouble paying for medicines?: No Do you have trouble getting transportation to medical appointments?: No Do you have trouble paying your heating and electricity bill?: No Do you have trouble taking care of your child, family member or friend?: No Do you have trouble with day-to-day activities such as bathing, preparing meals, shopping, managing finances, etc.?: No Are you currently unemployed and looking for a job?: No Are you interested in more education?: No Please select the resources that you would like help with: None Currently or been in a relationship where the following occur: No concerns reported THRIVE Score: 0 AUDIT C Alcohol Use Questionnaire (AUDIT-C) 1. How often do you have a drink containing alcohol?: 2-4 times a month 2. How many drinks containing alcohol do you have on a typical day when you are drinking?: 1 or 2 3. How often do you have six or more drinks on one occasion?: Never Total Score: 2 Score Reviewed/Action Taken: Yes ENRIQUETA-7 AMB Questionnaire ENRIQUETA-7 Date ENRIQUETA - 7 assessed: 11/09/24 Feeling nervous, anxious, or on edge: 1 = Several days Not being able to stop or control worryin = Not at all Worrying too much about different things: 0 = Not at all Trouble relaxin = Several days Being so restless that it is hard to sit still: 1 = Several days Becoming easily annoyed or irritable: 0 = Not at all Feeling afraid as if something awful might happen: 0 = Not at all Total ENRIQUETA-7 score (0-4 normal; 5-9 mild; 10-14 moderate; 15-21 severe): 3 Source: Developed by Drs. Saleem Griffin, Saira Corona, Morgan Powell and colleagues, with an educational yevgeniy from [employer]. ENRIQUETA-7 Assessment Billing ENRIQUETA-7 Assessment Tool: ENRIQUETA-7 Assessment 88366 Review of Systems Const Denies chills, Denies fatigue, Denies fever(s), Denies headache(s) and Denies weakness ENT Denies dizziness and Denies headache(s) Card Denies dyspnea Resp Denies cough, Denies dyspnea, Denies wheezing and Denies other (shortness of breath) Musc Denies numbness and Denies tingling Neuro Denies dizziness, Denies headache(s), Denies numbness, Denies tingling and Denies weakness Psych Denies anxiety and Denies depression Endo Denies fatigue Aller/Immun Denies wheezing Physical exam (Primary Care) Vital Signs: Last Vital Signs Temp 99.6 F 11/09/24 16:02 Pulse 77 11/09/24 16:02 Resp 12 11/09/24 16:02 BP 106/60 11/09/24 16:02 Pulse Ox 96 11/09/24 16:02 Oxygen Delivery Method Room Air 11/09/24 16:02 BMI result Body Mass Index 34.9 Tobacco/Smoking Status: Tobacco use Status Tobacco use date assessed 03/17/24 11/09/24 15:59 Patient Tobacco Use Status Never used Tobacco 11/09/24 15:59 e-Cigarette/Vaping Use Never Used 11/09/24 15:59 PHQ-9: PHQ-9 Score PHQ-9: Total score 0 11/09/24 16:07 Depression Screening Interpretation: Negative Thrive Assessment: Date of Thrive Assessment Date Thrive assessed 11/09/24 11/09/24 16:07 Currently or been in a relationship where the following occur: No concerns reported Const General: well developed; No acute distress Nutritional Appearance: well nourished Orientation/consciousness: patient oriented x3 HENMT Head: Yes normocephalic and Yes atraumatic Eyes General: appearance normal, both eyes and all related structures Pupils: Equal, round and reactive pupils present EOM: EOMs intact bilaterally Resp Effort & Inspection: normal respiratory effort Neuro General: patient oriented x3 and gait normal Cranial nerves: Yes Equal, round and reactive pupils present Psych Affect: normal affect Coding Level of Care Code Est Pt Level 3 (06704) Diagnoses ADHD F90.9 Anxiety F41.9 Allergies T78.40XA Elevated fasting glucose R73.01 Elevated LDL cholesterol level E78.00 Additional Codes ENRIQUETA-7 Assessment Billing - ENRIQUETA-7 Assessment Tool: ENRIQUETA-7 Assessment 70592 ([id number]) PHQ-9 - 33735 - PHQ-9 Billing: Yes ([id number]) Assessment & Plan Assessment & Plan (1) ADHD: Code(s): F90.9 - Attention-deficit hyperactivity disorder, unspecified type Category: Medical Plan: Medication?is?efficacious No?exacerbation?of?anxiety,?sleep?problems?or appetite?problems. 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 (3) Allergies: Code(s): T78.40XA - Allergy, unspecified, initial encounter Category: Medical Plan: Patient?requests?referral?to?an?cottonseed meat presser.??He?had?a?sleep?study?which?ruled? out?sleep?apnea?but?is?still?having?issues?with?snoring?and?was?advised?to?check ?with?an?cottonseed meat presser. Referred?to?immunology Also?advised?he?consider?trying?a?nasal?steroid.??He?is?already?using?a?second- generation?antihistamine. (4) Elevated fasting glucose: Code(s): R73.01 - Impaired fasting glucose Category: Medical Plan: Mildly?elevated?fasting?glucose?and ?also?mildly?elevated?LDL?cholesterol?but?patient?notes?that?he?had?coffee?with? milk?or?cream?prior?to?lab?draw. Will?recheck?this?prior?to?his?next?visit?in?follow-up?labs (5) Elevated LDL cholesterol level: Code(s): E78.00 - Pure hypercholesterolemia, unspecified Category: Medical Plan: As?above Orders: Orders Comprehensive [place]. Panel Fast Today Z00.00 - Encounter for general adult medical examination without abnormal findings Lipid Panel Today Z00.00 - Encounter for general adult medical examination wi thout abnormal findings Drug Screen Urine Today Z00.00 - Encounter for general adult medical examination without abnormal findings Referrals Allergy & Immunology Referral R06.83 - Snoring, T78.40XA - Allergy, unspecified, initial encounter
[2024-11-09 16:02] VITALS: BP 106/60; PULSE 77; RESP 12; TEMP 37.6; O2SAT 96; BMI 34.9
== END 2024-11-09 16:39 | disposition home or self-care (01) ==
LOC: HO.HMCFM 15:42
PROVIDERS: PCP Family Medicine; Visit Provider Family Medicine
DX: F90.9 Attention-deficit hyperactivity disorder, unspecified type (principal); F41.9 Anxiety disorder, unspecified; T78.40XA Allergy, unspecified, initial encounter; R73.01 Impaired fasting glucose; E78.00 Pure hypercholesterolemia, unspecified

== ENCOUNTER → 2024-11-09 15:42 | Outpatient (BNVA) | payer OTHER, SELFPAY | PROVIDERS: PCP Family Medicine; Visit Provider Family Medicine | DX: F90.9 Attention-deficit hyperactivity disorder, unspecified type (principal); F41.9 Anxiety disorder, unspecified; R73.01 Impaired fasting glucose; E78.00 Pure hypercholesterolemia, unspecified; T78.40XD Allergy, unspecified, subsequent encounter | CPT/HCPCS: 96127; 99212 ==

== ENCOUNTER 2025-06-07 15:58 | Outpatient (AMB) | payer OTHER, SELFPAY ==
--- NOTE | 2025-06-07 16:06 | A.OFFPC_ITS ---
Vital Signs 06/07/25 16:09 Height 6 ft 1 in Weight 278 lb 6 oz BMI 36.7 BP 120/70 Blood Pressure Location Rt brachial Position Sitting Respiration 16 Pulse 80 Pulse Source Pulse Oximeter Temp 97.9 F Temp Source Oral Pulse Oximetry (%) 95 Oxygen Delivery Method Room Air Intake Visit Reasons: CPE with f/u labs and health maint Intake Note: patient is scheduled for cpe and will come back to get labs completed Battery Technician Required: No Allergies No Known Allergies Allergy (Verified 06/07/25 16:07) Medication List - Last Reconciled 06/07/25 by Galileo Vásquez MD dextroamphetamine-amphetamine 20 mg (Adderall) 20 mg PO DAILY 30 days gabapentin 1-3 caps orally bedtime; magnesium oxide 400 mg PO BEDTIME methylphenidate HCl ER 36 mg PO DAILY 30 days Tobacco use date assessed: 06/07/25 Dental Screening Dental Screen Date: 06/07/25 Did you have a dental visit in the last 12 months?: No Did you have a dental problem in the last 6 months where you did not have access to dental care?: No Was dental information given to patient?: Yes HPI CPE with f/u labs and health maint HPI Details 30 y/o male presents for a CPE with f/u labs. No recent labs to review. Reports a heart murmur. [facility] Medical History Restless legs syndrome (RLS) Hypersomnia Loud snoring Poison sue Heart murmur Trouble in sleeping ADHD Surgical History No pertinent past surgical history Family History Father Idiopathic pulmonary fibrosis Social History Household Members: Family Both parents involved: No Caregiver staying overnight: No Housing: House Are you a primary animal daycare provider to a significant other at home: No Do you presently have visiting nurse or other home services: No 75 years or older and lives alone: No Alcohol intake: current Alcohol intake frequency: holidays/special occasions only Alcohol type: beer Patient Tobacco Use Status: Never used Tobacco e-Cigarette/Vaping Use: Never Used Special lloyd needs: No service: No Current occupational status: unemployed Current occupational exposures/hazards: No Cognitive needs: No Hearing needs: No Vision needs: No Questionnaire Thrive Questionnaire Date Thrive assessed: 11/09/24 I am a: Patient What is your living situation today?: I have a steady place to live Within the past 12 months, did the food you bought not last and you didn't have the money to get more?: Never true Within the past 12 months, did you worry whether your food would run out before you got money to buy more?: Never true Do you have trouble paying for medicines?: No Do you have trouble getting transportation to medical appointments?: No Do you have trouble paying your heating and electricity bill?: No Do you have trouble taking care of your child, family member or friend?: No Do you have trouble with day-to-day activities such as bathing, preparing meals, shopping, managing finances, etc.?: No Are you currently unemployed and looking for a job?: No Are you interested in more education?: No Please select the resources that you would like help with: None Currently or been in a relationship where the following occur: No concerns reported THRIVE Score: 0 ENRIQUETA-7 AMB Questionnaire ENRIQUETA-7 Date ENRIQUETA - 7 assessed: 11/09/24 Source: Developed by Drs. Saleem Griffin, Saira Corona, Morgan Powell and colleagues, with an educational yevgeniy from [employer]. Review of Systems Const Denies chills, Denies fatigue, Denies fever(s), Denies headache(s) and Denies weakness Eyes Denies change in vision ENT Denies dizziness, Denies headache(s), Denies hearing loss, Denies nasal congestion, Denies sinus pain, Denies sinus pressure and Denies sore throat Card Denies chest pain, Denies lightheadedness, Denies dyspnea and Denies other (palpitations) Resp Denies cough, Denies dyspnea and Denies wheezing GI Denies abdominal pain, Denies melena, Denies hematochezia, Denies change in bowel habits, Denies dyspepsia and Denies nausea Denies hematuria and Denies dysuria Musc Denies abnormal gait, Denies myalgias, Denies arthralgias, Denies numbness and Denies tingling Skin/Breast Denies rash, Denies unusual bruising and Denies wounds Neuro Denies abnormal gait, Denies dizziness, Denies headache(s), Denies memory loss, Denies numbness, Denies Sensory deficit (Neuro), Denies tingling and Denies weakness Psych Denies anxiety, Denies depression and Denies memory loss Endo Denies cold intolerance, Denies fatigue, Denies heat intolerance, Denies polydipsia and Denies polyuria Niranjan/Lymph Denies easy bleeding and Denies easy bruising Aller/Immun Denies wheezing Physical exam (Primary Care) Vital Signs: Last Vital Signs Temp 97.9 F 06/07/25 16:09 Pulse 80 06/07/25 16:09 Resp 16 06/07/25 16:09 BP 120/70 06/07/25 16:09 Pulse Ox 95 06/07/25 16:09 Oxygen Delivery Method Room Air 06/07/25 16:09 BMI result Body Mass Index 36.7 Tobacco/Smoking Status: Tobacco use Status Tobacco use date assessed 06/07/25 06/07/25 16:12 Patient Tobacco Use Status Never used Tobacco 06/07/25 16:07 e-Cigarette/Vaping Use Never Used 06/07/25 16:07 Thrive Assessment: Date of Thrive Assessment Date Thrive assessed 11/09/24 06/07/25 16:07 Currently or been in a relationship where the following occur: No concerns reported Const General: no acute distress, well developed, alert and awake Nutritional Appearance: well nourished Orientation/consciousness: patient oriented x3 HENMT Head: Yes normocephalic and Yes atraumatic Ears: hearing grossly normal bilaterally and TM's normal bilaterally General nose exam: Normal external nose present and Normal nares present Mouth: Normal oral and palatal mucosa present and moist mucous membranes Teeth and gingiva: dentition normal Throat: Yes posterior oropharynx normal Eyes General: appearance normal, both eyes and all related structures Pupils: Equal, round and reactive pupils present and Pupil accommodation reflex normal EOM: EOMs intact bilaterally Neck Neck: Yes normal visual inspection, Yes no lymphadenopathy and Yes trachea midline Thyroid: Thyroid normal Carotids: no bruits Lymphatic: no lymphadenopathy noted Chest Chest palpation & inspection: normal inspection of the chest Resp Effort & Inspection: normal respiratory effort Auscultation: clear to auscultation bilaterally Cardio Rate: regular rate Rhythm: regular rhythm Heart sounds: S1 normal heart sound present, S2 normal heart sound present, no gallops, Murmur heart sound present and no rubs Bruits: no abdominal aortic bruits and no carotid bruits GI Palpation (GI): No Abdominal aortic bruit present, Soft to palpation, nontender, No hepatosplenomegaly present and No Rebound tenderness present Auscultation: normal bowel sounds General: Yes no CVA tenderness Back/Spine/Pelvis Back: no CVA tenderness Cervical Spine: cervical ROM normal and No Cervical spine tenderness Thoracic/Lumbar Spine: thoraco-lumbar ROM normal, No pain with thoraco-lumbar ROM, No thoracic spinal tenderness and No lumbar spinal tenderness Skin Lesions: no lesions Rashes: no rashes Trauma: no lacerations or abrasions Wounds: no wounds Nails: normal Neuro General: patient oriented x3 Cranial nerves: Yes Equal, round and reactive pupils present Cognition (Neuro): normal cognition Gait exam (Neuro): Normal gait present Motor exam (neuro): 5/5 motor strength present throughout Sensory Exam: No Sensory deficit (Neuro) Deep tendon reflexes (DTR's): Right patellar reflex intensity grade: 2+ and Left patellar reflex intensity grade: 2+ Extrem General: Yes normal to inspection and No edema Psych Appearance: grossly normal Affect: normal affect Attitude: cooperative Thought process: Normal thought process present Coding Level of Care Code New Pt Prev Care 18-39yr([id number] Diagnoses Adult general medical exam Z00.00 ADHD F90.9 Heart murmur R01.1 Assessment & Plan Assessment & Plan (1) Adult general medical exam: Code(s): Z00.00 - Encounter for general adult medical examination without abnormal findings Category: Medical Plan: 30-year-old male presents for complete physical exam Encouraged healthy diet with active lifestyle and plenty of exercise (2) ADHD: Code(s): F90.9 - Attention-deficit hyperactivity disorder, unspecified type Category: Medical Plan: Medications have been effective Will continue these Recommended regular follow-up and patient agrees (3) Heart murmur: Code(s): R01.1 - Cardiac murmur, unspecified Category: Medical Plan: Systolic heart murmur and patient says that he was given antibiotic prophylaxis in the past with procedure such as dental procedures. No recent follow-up Checking echocardiogram Orders: Orders Complete Blood Count Auto Diff Today Z00.00 - Encounter for general adult medical examination without abnormal findings Microalbumin, Random (w Creat) Today I10 - Essential (primary) hypertension UA CC w/rflx Micro + Cult Today Z00.00 - Encounter for general adult medical examination without abnormal findings Drug Screen Urine Today R01.1 - Cardiac murmur, unspecified Comprehensive [place]. Panel Fast Today Z00.00 - Encounter for general adult medical examination without abnormal findings Lipid Panel Today Z00.00 - Encounter for general adult medical examination without abnormal findings TSH reflex Free T4 Today Z00.00 - Encounter for general adult medical examination without abnormal findings CA echo transthoracic complete Today R01.1 - Cardiac murmur, unspecified
[2025-06-07 16:09] VITALS: BP 120/70; PULSE 80; RESP 16; TEMP 36.6; O2SAT 95; BMI 36.7
== END 2025-06-07 16:35 | disposition home or self-care (01) ==
PROVIDERS: PCP Family Medicine; Visit Provider Family Medicine
DX: Z00.00 Encounter for general adult medical examination without abnormal findings (principal); F90.9 Attention-deficit hyperactivity disorder, unspecified type; R01.1 Cardiac murmur, unspecified

== ENCOUNTER 2025-06-08 08:46 | Outpatient (REF) | payer OTHER, SELFPAY ==
[2025-06-08 11:23] LABS: MANUAL DIFF FLAG NO
[2025-06-08 11:35] LABS: Appearance Urine Clear; Glucose Urine UA Negative (Negative); PH 8.5 (5.0-9.0); Specific Gravity - Urine 1.020 (1.005-1.025)
[2025-06-08 11:42] LABS: Cannabinoid Screen Urine POSITIVE (Not Detect)
[2025-06-08 11:45] LABS: Hematocrit 46.4 % (42.0-52.0); Hemoglobin 15.5 g/dl (14.0-18.0); Imm Gran Abs Auto 0.02 X10*3/uL (0.00-0.03); Imm Gran Pct Auto 0.3 % (0.0-0.4); Lymphocytes Absolute Auto 1.6 X10*3/uL (1.2-4.9); Mean Corpuscular HGB Conc 33.4 g/dl (31.0-36.0); Mean Corpuscular Hemoglobin 28.3 pg (27.0-33.0); Mean Corpuscular Volume 84.8 fL (80.0-98.0); NRBC Abs Auto 0.000 X10*3/uL (0.0-0.012); NRBC Pct Auto 0.0 /100WBC (0.0-0.2); Platelet Count 279 X10*3/uL (160-400); Red Blood Count 5.47 X10*6/uL (4.60-5.80); White Blood Count 6.8 X10*3/uL (4.8-10.8)
[2025-06-08 12:09] LABS: Alanine Aminotransferase 23 U/L (0-40); Albumin Level 4.7 g/dL (3.5-5.0); Alkaline Phosphatase 72 U/L (39-117); Anion Gap 11 (12-20); Aspartate Amino Transferase 27 U/L (5-37); Blood Urea Nitrogen 14 mg/dL (9-16); Calcium 9.3 mg/dL (8.4-10.2); Carbon Dioxide 28 mmol/L (22-29); Chloride 107 mmol/L (96-108); Cholesterol 178 mg/dL (<200); Estimated Glomerular Filt Rate > 60; HDL Cholesterol 57 mg/dL (>40); Potassium 4.2 mmol/L (3.3-5.1); Sodium 142 mmol/L (135-145); Total Protein 7.3 g/dL (6.5-8.0); Triglycerides 79 mg/dL (<150)
== END 2025-06-08 08:47 | disposition home or self-care (01) ==
LOC: HO.WFDLDS 08:46
PROVIDERS: Visit Provider Family Medicine
DX: Z00.00 Encounter for general adult medical examination without abnormal findings (principal); Z51.81 Encounter for therapeutic drug level monitoring; I10 Essential (primary) hypertension; R01.1 Cardiac murmur, unspecified
CPT/HCPCS: 80053; 80061; 80307; 81003; 82043; 82570; 84443; 85025

== ENCOUNTER 2025-07-06 15:00 | Outpatient (AMB) | payer OTHER, SELFPAY ==
--- NOTE | 2025-07-06 14:57 | MHC.PC.OV ---
Intake Visit Reasons: f/u CPE-labs via telemed Intake Note: patient is scheduled to review lab results with pcp Software Configuration Analyst Required: No Allergies No Known Allergies Allergy (Verified 07/06/25 14:58) Medication List - Last Reconciled 07/06/25 by Galileo Vásuqez MD dextroamphetamine-amphetamine 20 mg (Adderall) 20 mg PO DAILY 30 days gabapentin 1-3 caps orally bedtime; magnesium oxide 400 mg PO BEDTIME methylphenidate HCl ER 36 mg PO DAILY 30 days Tobacco use date assessed: 06/07/25 Dental Screening Dental Screen Date: 06/07/25 HPI f/u CPE-labs via telemed HPI Details 30 y/o male presents to f/u labs via telemed. Labs drawn 06/08/25. Reviewed labs with pt. Fasting glucose 105. Triglycerides 79. TC 178. LDL 106. HDL 57. Urine positive for cocaine. [facility] Medical History (Updated 06/07/25 @ 16:28 by Khanh Nicholson) Restless legs syndrome (RLS) Hypersomnia Loud snoring Poison sue Heart murmur Trouble in sleeping ADHD Surgical History No pertinent past surgical history Family History Father Idiopathic pulmonary fibrosis Social History Household Members: Family Both parents involved: No Caregiver staying overnight: No Housing: House Are you a primary pet care attendant to a significant other at home: No Do you presently have visiting nurse or other home services: No 75 years or older and lives alone: No Alcohol intake: current Alcohol intake frequency: holidays/special occasions only Alcohol type: beer Patient Tobacco Use Status: Never used Tobacco e-Cigarette/Vaping Use: Never Used Special lloyd needs: No service: No Current occupational status: unemployed Current occupational exposures/hazards: No Cognitive needs: No Hearing needs: No Vision needs: No Questionnaire Thrive Questionnaire Date Thrive assessed: 11/09/24 I am a: Patient What is your living situation today?: I have a steady place to live Within the past 12 months, did the food you bought not last and you didn't have the money to get more?: Never true Within the past 12 months, did you worry whether your food would run out before you got money to buy more?: Never true Do you have trouble paying for medicines?: No Do you have trouble getting transportation to medical appointments?: No Do you have trouble paying your heating and electricity bill?: No Do you have trouble taking care of your child, family member or friend?: No Do you have trouble with day-to-day activities such as bathing, preparing meals, shopping, managing finances, etc.?: No Are you currently unemployed and looking for a job?: No Are you interested in more education?: No Please select the resources that you would like help with: None Currently or been in a relationship where the following occur: No concerns reported THRIVE Score: 0 ENRIQUETA-7 AMB Questionnaire ENRIQUETA-7 Date ENRIQUETA - 7 assessed: 11/09/24 Source: Developed by Drs. Saleem Griffin, Saira Corona, Morgan Powell and colleagues, with an educational yevgeniy from [employer]. Review of Systems Const Denies chills, Denies fatigue, Denies fever(s), Denies headache(s) and Denies weakness ENT Denies dizziness and Denies headache(s) Card Denies dyspnea Resp Denies cough, Denies dyspnea, Denies wheezing and Denies other (shortness of breath) Musc Denies numbness and Denies tingling Neuro Denies dizziness, Denies headache(s), Denies numbness, Denies tingling and Denies weakness Psych Denies anxiety and Denies depression Endo Denies fatigue Aller/Immun Denies wheezing Physical exam (Primary Care) Tobacco/Smoking Status: Tobacco use Status Tobacco use date assessed 06/07/25 07/06/25 14:59 Patient Tobacco Use Status Never used Tobacco 07/06/25 14:59 e-Cigarette/Vaping Use Never Used 07/06/25 14:59 Thrive Assessment: Date of Thrive Assessment Date Thrive assessed 11/09/24 07/06/25 14:59 Currently or been in a relationship where the following occur: No concerns reported Telehealth Telehealth Telehealth Platform: Telephone Location of provider rendering services: practice address Location of patient: address on file Patient Identification confirmed using: Name, : Yes Telehealth method: voice only Patient verbally consented to treatment: Yes Patient verbally consented to billing insurance company: Yes Patient informed of any privacy concerns related to visit: Yes Minutes spent on Phone/Video with Pt.: 9 Coding Level of Care Code Tele Est Pt Level 2 (96625) Diagnoses Elevated LDL cholesterol level E78.00 Elevated fasting glucose R73.01 ADHD F90.9 Assessment & Plan Assessment & Plan (1) Elevated LDL cholesterol level: Code(s): E78.00 - Pure hypercholesterolemia, unspecified Category: Medical Plan: Work on a diet low in saturated fats and cholesterol Will continue to monitor (2) Elevated fasting glucose: Code(s): R73.01 - Impaired fasting glucose Category: Medical Plan: Mildly elevated fasting blood sugar Will check A1c at next blood draw or appointment (3) ADHD: Code(s): F90.9 - Attention-deficit hyperactivity disorder, unspecified type Category: Medical Plan: Patient with ADHD and initially started treatment at this office by another provider. Unclear if a treatment agreement was made. Random urine found cocaine Had long discussion with patient today. Unable to prescribe this medication if he has concurrent cocaine use. Patient understands. Patient says that he is not a chronic user but did use this substance at a wedding. He agrees that there will be no further cocaine use if he is to be on medication for ADHD. Will have him come in next week for further discussion and signing of a treatment agreement. Will recheck urine. Will have patient come in frequently for evaluation, urine testing and pill counts. Can not send medication at this point. Will need evaluation and signatures on treatment agreement. Close monitoring
== END 2025-07-06 17:05 ==
LOC: HO.HMCFM 15:00
PROVIDERS: PCP Family Medicine; Visit Provider Family Medicine
DX: E78.00 Pure hypercholesterolemia, unspecified (principal); R73.01 Impaired fasting glucose; F90.9 Attention-deficit hyperactivity disorder, unspecified type

== ENCOUNTER 2025-07-11 08:26 | Outpatient (AMB) | payer OTHER, SELFPAY ==
--- NOTE | 2025-07-11 08:29 | A.OFFPC_ITS ---
Vital Signs 07/11/25 08:41 Height 6 ft 1 in Weight 280 lb BMI 36.9 BP 112/70 Blood Pressure Location Rt brachial Position Sitting Respiration 16 Pulse 95 Pulse Source Pulse Oximeter Temp 98.1 F Temp Source Temporal Artery Scan Pulse Oximetry (%) 97 Oxygen Delivery Method Room Air Intake Visit Reasons: f/u ADHD Intake Note: Dex presents in the office today for a follow up to his ADHD. Allergies No Known Allergies Allergy (Verified 07/11/25 08:39) Medication List - Last Reconciled 07/11/25 by Galileo Vásquze MD dextroamphetamine-amphetamine 20 mg (Adderall) 20 mg PO DAILY gabapentin 1-3 caps orally bedtime; magnesium oxide 400 mg PO BEDTIME methylphenidate HCl ER (Relexxii) 72 mg PO DAILY Tobacco use date assessed: 07/11/25 Dental Screening Dental Screen Date: 07/11/25 Did you have a dental visit in the last 12 months?: Yes Did you have a dental problem in the last 6 months where you did not have access to dental care?: No Was dental information given to patient?: Patient has dentist HPI f/u ADHD HPI Details Patient returns to follow-up ADHD and abnormal UDS. Patient had been started medication by another provider. Treatment contract had not been filled out. Had a long discussion with patient regarding his UDS results at recent telemedicine appointment Patient reviewed treatment contract and this is signed. He had no questions. Agrees to abide by the contract. Also had elevated fasting blood sugar. A1c today 5.4% [facility] Medical History (Updated 06/07/25 @ 16:28 by Khanh Nicholson) Restless legs syndrome (RLS) Hypersomnia Loud snoring Poison sue Heart murmur Trouble in sleeping ADHD Surgical History No pertinent past surgical history Family History Father Idiopathic pulmonary fibrosis Social History (Updated 07/11/25 @ 08:41 by Eboni Fairbanks CMA) Household Members: Family Both parents involved: No Caregiver staying overnight: No Housing: House Are you a primary nursing care partner to a significant other at home: No Do you presently have visiting nurse or other home services: No 75 years or older and lives alone: No Alcohol intake: current Alcohol intake frequency: holidays/special occasions only Alcohol type: beer Patient Tobacco Use Status: Never used Tobacco e-Cigarette/Vaping Use: Never Used Use of substances other than those prescribed or required for medical reasons: No Special lloyd needs: No service: No Current occupational status: unemployed Current occupational exposures/hazards: No Cognitive needs: No Hearing needs: No Vision needs: No Questionnaire Thrive Questionnaire Date Thrive assessed: 11/09/24 I am a: Patient What is your living situation today?: I have a steady place to live Within the past 12 months, did the food you bought not last and you didn't have the money to get more?: Never true Within the past 12 months, did you worry whether your food would run out before you got money to buy more?: Never true Do you have trouble paying for medicines?: No Do you have trouble getting transportation to medical appointments?: No Do you have trouble paying your heating and electricity bill?: No Do you have trouble taking care of your child, family member or friend?: No Do you have trouble with day-to-day activities such as bathing, preparing meals, shopping, managing finances, etc.?: No Are you currently unemployed and looking for a job?: No Are you interested in more education?: No Please select the resources that you would like help with: None Currently or been in a relationship where the following occur: No concerns reported THRIVE Score: 0 ENRIQUETA-7 AMB Questionnaire ENRIQUETA-7 Date ENRIQUETA - 7 assessed: 11/09/24 Source: Developed by Drs. Saleem Griffin, Saira Corona, Morgan Powell and colleagues, with an educational yevgeniy from [employer]. Review of Systems Const Denies chills, Denies fatigue, Denies fever(s), Denies headache(s) and Denies weakness ENT Denies dizziness and Denies headache(s) Card Denies chest pain, Denies lightheadedness, Denies dyspnea and Denies other (Palpitations) Resp Denies cough, Denies dyspnea, Denies wheezing and Denies other ( shortness of breath) Musc Denies numbness and Denies tingling Neuro Denies dizziness, Denies headache(s), Denies numbness, Denies tingling, Denies paresthesias and Denies weakness Psych Denies anxiety and Denies depression Endo Denies fatigue Aller/Immun Denies wheezing Physical exam (Primary Care) Vital Signs: Last Vital Signs Temp 98.1 F 07/11/25 08:41 Pulse 95 07/11/25 08:41 Resp 16 07/11/25 08:41 BP 112/70 07/11/25 08:41 Pulse Ox 97 07/11/25 08:41 Oxygen Delivery Method Room Air 07/11/25 08:41 BMI result Body Mass Index 36.9 Tobacco/Smoking Status: Tobacco use Status Tobacco use date assessed 07/11/25 07/11/25 08:45 Patient Tobacco Use Status Never used Tobacco 07/11/25 08:41 e-Cigarette/Vaping Use Never Used 07/11/25 08:41 Thrive Assessment: Date of Thrive Assessment Date Thrive assessed 11/09/24 07/11/25 08:31 Currently or been in a relationship where the following occur: No concerns reported Const General: no acute distress and well developed Nutritional Appearance: well nourished Orientation/consciousness: patient oriented x3 HENMT Head: Yes normocephalic and Yes atraumatic Eyes General: appearance normal, both eyes and all related structures Pupils: Equal, round and reactive pupils present EOM: EOMs intact bilaterally Resp Effort & Inspection: normal respiratory effort Auscultation: clear to auscultation bilaterally Cardio Rate: regular rate Rhythm: regular rhythm Heart sounds: S1 normal heart sound present, S2 normal heart sound present, no gallops, no murmurs and no rubs Neuro General: patient oriented x3 and gait normal Cranial nerves: Yes Equal, round and reactive pupils present Psych Affect: normal affect Coding Level of Care Code Est Pt Level 3 (08070) Diagnoses Elevated fasting glucose R73.01 ADHD F90.9 Assessment & Plan Assessment & Plan (1) Elevated fasting glucose: Code(s): R73.01 - Impaired fasting glucose Category: Medical (2) ADHD: Code(s): F90.9 - Attention-deficit hyperactivity disorder, unspecified type Category: Medical Plan Pt presents to f/u ADHD and discuss treatment contract. Pt agrees to abide by contract. Will continue treatment with close f/u. Repeating UDs today. Return in 1 month. FBS was elevated A1c 5.4% encouraged a diet lower in sugars and starches Orders: Orders AMB Hemoglobin A1c Today R73.01 - Impaired fasting glucose Drug Screen Urine Today F90.9 - Attention-deficit hyperactivity disorder, unspecified type
[2025-07-11 08:41] VITALS: BP 112/70; PULSE 95; RESP 16; TEMP 36.7; O2SAT 97; BMI 36.9
== END 2025-07-11 09:33 | disposition home or self-care (01) ==
LOC: HO.HMCFM 08:27
PROVIDERS: PCP Family Medicine; Visit Provider Family Medicine
DX: R73.01 Impaired fasting glucose (principal); F90.9 Attention-deficit hyperactivity disorder, unspecified type

== ENCOUNTER 2025-07-11 08:26 | Outpatient (REF) | payer OTHER, SELFPAY ==
[2025-07-11 12:19] LABS: Cannabinoid Screen Urine POSITIVE (Not Detect)
== END 2025-07-11 08:27 | disposition home or self-care (01) ==
LOC: HO.LNP 08:26
PROVIDERS: PCP Family Medicine; Visit Provider Family Medicine
DX: R73.01 Impaired fasting glucose (principal); F90.9 Attention-deficit hyperactivity disorder, unspecified type; Z79.899 Other long term (current) drug therapy
CPT/HCPCS: 80307; 83036

== ENCOUNTER 2025-08-04 15:32 | Outpatient (AMB) | payer OTHER, SELFPAY ==
--- NOTE | 2025-08-04 15:33 | A.OFFPC_ITS ---
Vital Signs 08/04/25 15:36 Height 6 ft 1 in Weight 282 lb BMI 37.2 BP 122/67 Blood Pressure Location Lt brachial Position Sitting Respiration 12 Pulse 77 Pulse Source Pulse Oximeter Temp 96.3 F L Temp Source Temporal Artery Scan Pulse Oximetry (%) 99 Oxygen Delivery Method Room Air Intake Visit Reasons: F/U ADHD Intake Note: Follow up on adhd Horticulture Professor Required: No Allergies No Known Allergies Allergy (Verified 08/04/25 15:34) Tobacco use date assessed: 08/04/25 Dental Screening Dental Screen Date: 08/04/25 Did you have a dental visit in the last 12 months?: Yes Did you have a dental problem in the last 6 months where you did not have access to dental care?: No Was dental information given to patient?: Patient has dentist HPI F/U ADHD HPI Details 30 y/o male presents to f/u ADHD. Had been unable to receive his meds. [facility] Medical History (Updated 06/07/25 @ 16:28 by Khanh Nicholson) Restless legs syndrome (RLS) Hypersomnia Loud snoring Poison sue Heart murmur Trouble in sleeping ADHD Surgical History No pertinent past surgical history Family History Father Idiopathic pulmonary fibrosis Social History (Updated 07/11/25 @ 08:41 by Eboni Fairbanks CMA) Household Members: Family Both parents involved: No Caregiver staying overnight: No Housing: House Are you a primary residential caregiver to a significant other at home: No Do you presently have visiting nurse or other home services: No 75 years or older and lives alone: No Alcohol intake: current Alcohol intake frequency: holidays/special occasions only Alcohol type: beer Patient Tobacco Use Status: Never used Tobacco e-Cigarette/Vaping Use: Never Used Second Hand Smoke Exposure: No Special lloyd needs: No service: No Current occupational status: unemployed Current occupational exposures/hazards: No Cognitive needs: No Hearing needs: No Vision needs: No Questionnaire PHQ-9 Over the last 2 weeks, how often have you been bothered by any of the following problems? 1. Little interest or pleasure in doing things: not at all 2. Feeling down, depressed, or hopeless: not at all 3. Trouble falling or staying asleep, or sleeping too much: not at all 4. Feeling tired or having little energy: not at all 5. Poor appetite or overeating: not at all 6. Feeling bad about yourself - or that you are a failure or have let yourself or your family down: not at all 7. Trouble concentrating on things, such as reading the newspaper or watching television: not at all 8. Moving or speaking so slowly that other people could have noticed. Or the o pposite - being so fidgety or restless that you have been moving around a lot more than usual: not at all 9. Thoughts that you would be better off or of hurting yourself in some way: not at all Total score: 0 Depression Screening Interpretation: Negative Depression Screening Done: Yes 95012 - PHQ-9 Billing: Yes Source: Developed by Drs. Saleem Griffin, Saira Corona, Morgan Poewll and colleagues, with an educational yevgeniy from [employer] Thrive Questionnaire Date Thrive assessed: 08/04/25 I am a: Patient What is your living situation today?: I have a steady place to live Within the past 12 months, did the food you bought not last and you didn't have the money to get more?: Never true Within the past 12 months, did you worry whether your food would run out before you got money to buy more?: Never true Do you have trouble paying for medicines?: No Do you have trouble getting transportation to medical appointments?: No Do you have trouble paying your heating and electricity bill?: No Do you have trouble taking care of your child, family member or friend?: No Do you have trouble with day-to-day activities such as bathing, preparing meals, shopping, managing finances, etc.?: No Are you currently unemployed and looking for a job?: No Are you interested in more education?: No Currently or been in a relationship where the following occur: No concerns reported THRIVE Score: 0 ENRIQUETA-7 AMB Questionnaire ENRIQUETA-7 Date ENRIQUETA - 7 assessed: 08/04/25 Feeling nervous, anxious, or on edge: 0 = Not at all Not being able to stop or control worryin = Not at all Worrying too much about different things: 0 = Not at all Trouble relaxin = Not at all Being so restless that it is hard to sit still: 0 = Not at all Becoming easily annoyed or irritable: 0 = Not at all Feeling afraid as if something awful might happen: 0 = Not at all Total ENRIQUETA-7 score (0-4 normal; 5-9 mild; 10-14 moderate; 15-21 severe): 0 Source: Developed by Drs. Saleem Griffin, Saira Corona, Morgan Powell and colleagues, with an educational yevgeniy from [employer] ENRIQUETA-7 Assessment Billing ENRIQUETA-7 Assessment Tool: ENRIQUETA-7 Assessment 98583 Review of Systems Const Denies chills, Denies fatigue, Denies fever(s), Denies headache(s) and Denies weakness ENT Denies dizziness and Denies headache(s) Card Denies dyspnea Resp Denies cough, Denies dyspnea, Denies wheezing and Denies other (shortness of breath) Musc Denies numbness and Denies tingling Neuro Denies dizziness, Denies headache(s), Denies numbness, Denies tingling and Denies weakness Psych Denies anxiety and Denies depression Endo Denies fatigue Aller/Immun Denies wheezing Physical exam (Primary Care) Vital Signs: Last Vital Signs Temp 96.3 F L 08/04/25 15:36 Pulse 77 08/04/25 15:36 Resp 12 08/04/25 15:36 BP 122/67 08/04/25 15:36 Pulse Ox 99 08/04/25 15:36 Oxygen Delivery Method Room Air 08/04/25 15:36 BMI result Body Mass Index 37.2 Tobacco/Smoking Status: Tobacco use Status Tobacco use date assessed 08/04/25 08/04/25 15:39 Patient Tobacco Use Status Never used Tobacco 08/04/25 15:39 e-Cigarette/Vaping Use Never Used 08/04/25 15:39 PHQ-9: PHQ-9 Score PHQ-9: Total score 0 08/04/25 16:00 Depression Screening Interpretation: Negative Thrive Assessment: Date of Thrive Assessment Date Thrive assessed 08/04/25 08/04/25 15:39 Currently or been in a relationship where the following occur: No concerns reported Const General: well developed; No acute distress Nutritional Appearance: well nourished Orientation/consciousness: patient oriented x3 HENMT Head: Yes normocephalic and Yes atraumatic Eyes General: appearance normal, both eyes and all related structures Pupils: Equal, round and reactive pupils present EOM: EOMs intact bilaterally Resp Effort & Inspection: normal respiratory effort Neuro General: patient oriented x3 and gait normal Cranial nerves: Yes Equal, round and reactive pupils present Psych Affect: normal affect Coding Level of Care Code Est Pt Level 3 (93300) Diagnoses ADHD F90.9 Additional Codes ENRIQUETA-7 Assessment Billing - ENRIQUETA-7 Assessment Tool: ENRIQUETA-7 Assessment 33314 ([id number]) PHQ-9 - 07513 - PHQ-9 Billing: Yes ([id number]) Assessment & Plan Assessment & Plan (1) ADHD: Code(s): F90.9 - Attention-deficit hyperactivity disorder, unspecified type Category: Medical Plan: Following up with patient regarding ADHD. Repeat of urine drug screen is appropriate. Recent electronic Rx had transmission failure. Resending this. Patient will start medication. He will return in 1 month to follow-up on efficacy and for urine drug screen and pill count Patient understands and agrees to pill count. Medications: Changed From dextroamphetamine-amphetamine 20 mg (Adderall) 20 mg PO DAILY 0RF To dextroamphetamine-amphetamine 20 mg (Adderall) 20 mg PO DAILY 30 tabs 0RF 30 days From methylphenidate HCl ER (Relexxii) 72 mg PO DAILY 0RF To methylphenidate HCl ER (Relexxii) 72 mg PO DAILY 30 tabs 0RF 30 days
[2025-08-04 15:36] VITALS: BP 122/67; PULSE 77; RESP 12; TEMP 35.7; O2SAT 99; BMI 37.2
== END 2025-08-04 16:06 | disposition home or self-care (01) ==
LOC: HO.HMCFM 15:33
PROVIDERS: PCP Family Medicine; Visit Provider Family Medicine
DX: F90.9 Attention-deficit hyperactivity disorder, unspecified type (principal)

== ENCOUNTER → 2025-08-04 15:32 | Outpatient (BNVA) | payer OTHER, SELFPAY | PROVIDERS: PCP Family Medicine; Visit Provider Family Medicine | DX: Z13.31 Encounter for screening for depression (principal); Z13.39 Encounter for screening examination for other mental health and behavioral disorders | CPT/HCPCS: 96127 ==